=== PATIENT | male | born 1985 | race Caucasian/White ===

== ENCOUNTER 2019-11-29 10:52 | Inpatient (IN) | payer OTHER ==
[2019-11-29] MEDS ORDERED: ONDANSETRON 4 MG/2 ML VIAL IVPUSH ONE (11:51)
[2019-11-29] MEDS ORDERED: FAMOTIDINE 20 MG/50 ML IVPB 20 MG/50 ML MG IVPB ONE (11:51)
[2019-11-29] MEDS ORDERED: SODIUM CHLORIDE 1,000 ML IV STA (11:51)
[2019-11-29] MEDS ORDERED: ACETAMINOPHEN 1000 MG/100 ML VIAL (NON FORMULARY) IVPB ONE (11:51)
--- NOTE | 2019-11-29 12:07 | PDOC ---
History of Present Illness - General Chief Complaint: Diarrhea Stated Complaint: DIZZYNESS Time Seen by Provider: 11/29/19 11:25 History Source: Patient Exam Limitations: No Limitations Past History - Travel History Traveled outside of the country in the last 30 days: No Close contact w/someone who was outside of country & ill: No - Medical History Allergies/Adverse Reactions: Allergies Allergy/AdvReac Type Severity Reaction Status Date / Time No Known Allergies Allergy Verified 11/29/19 10:55 COPD: No Other medical history: DENIES - Immunization History Immunization Up to Date: No - Psycho-Social/Smoking History Smoking History: Never smoked - Substance Abuse Hx (Audit-C & DAST Scrn) How often the patient has a drink containing alcohol: Never Score: In Men: 4 or > Positive; In Women: 3 or > Positive: 0 Screen Result (Pos requires Nsg. Audit-10AR): Negative In the last yr the pt used illegal drug/Rx for NonMed reason: No Score: Yes response is considered Positive: 0 Screen Result (Positive result requires Nsg. DAST-10): Negative Review of Systems - Review of Systems Able to Perform ROS?: Yes Comments:: 11/29/19 12:07 CONSTITUTIONAL: Absent: fever, chills, diaphoresis, generalized weakness, malaise, loss of appetite HEENT: Absent: rhinorrhea, nasal congestion, throat pain, throat swelling, difficulty swallowing, mouth swelling, ear pain, eye pain, visual Changes CARDIOVASCULAR: Absent: chest pain, loss of consciousness, palpitations, irregular heart rate, peripheral edema RESPIRATORY: Absent: cough, shortness of breath, dyspnea with exertion, orthopnea, wheezing, stridor, hemoptysis GASTROINTESTINAL: Present: abdominal pain, nausea, diarrhea Absent: abdominal distension, diarrhea, constipation, melena, hematochezia GENITOURINARY: Absent: dysuria, frequency, urgency, hesitancy, hematuria, flank pain, genital pain MUSCULOSKELETAL: Absent: myalgia, arthralgia, joint swelling SKIN: Absent: rash, itching, pallor HEMATOLOGIC/IMMUNOLOGIC: Absent: easy bleeding, easy bruising, lymphadenopathy, frequent infections ENDOCRINE: Absent: unexplained weight gain, unexplained weight loss, heat intolerance, cold intolerance NEUROLOGIC: Absent: headache, focal weakness or paresthesias, dizziness, unsteady gait, seizure, mental status changes, bladder or bowel incontinence PSYCHIATRIC: Absent: anxiety, depression, suicidal or homicidal ideation, hallucinations. Is the patient limited Fijian proficient: No *Physical Exam - Vital Signs Last Vital Signs Temp Pulse Resp BP Pulse Ox 97.8 F 91 H 20 126/77 100 11/29/19 10:55 11/29/19 10:55 11/29/19 10:55 11/29/19 10:55 11/29/19 10:55 - Physical Exam 11/29/19 12:24 GENERAL: Well developed, well nourished. Awake and alert. No acute distress. HEENT: Normocephalic, atraumatic. PERRLA, EOMI. No conjunctival pallor. Sclera are non- icteric. Moist mucous membranes. Oropharynx is clear. NECK: Supple. Full ROM. No lymphadenopathy. CARDIOVASCULAR: Regular rate and rhythm. No murmurs, rubs, or gallops. Distal pulses are 2+ and symmetric. PULMONARY: No evidence of respiratory distress. Lungs clear to auscultation bilaterally. No wheezing, rales or rhonchi. ABDOMINAL: TTP of LUQ/ LLQ. Soft. Non-distended. No rebound or guarding. No organomegaly. Normoactive bowel sounds. MUSCULOSKELETAL Normal range of motion at all joints. No bony deformities or tenderness. No CVA tenderness. EXTREMITIES: No cyanosis. No clubbing. No edema. No calf tenderness. SKIN: Warm and dry. Normal capillary refill. No rashes. No jaundice. NEUROLOGICAL: Alert, awake, appropriate. Cranial nerves 2-12 intact. No deficits to light touch and temperature in face, upper extremities and lower extremities. No motor deficits in the in face, upper extremities and lower extremities. Normoreflexic in the upper and lower extremities. Normal speech. Toes are down-going bilaterally. Gait is normal without ataxia. PSYCHIATRIC: Cooperative. Good eye contact. Appropriate mood and affect. ED Treatment Course - LABORATORY CBC & Chemistry Diagram: 11/29/19 12:19 11/29/19 12:19 - RADIOLOGY Radiology Studies Ordered: Category Date Time Status ABDOMEN & PELVIS CT WITH CONTR [CT] Stat CT Scan 11/29/19 11:51 Ordered Medical Decision Making - Medical Decision Making 11/29/19 16:39 Patient is a 34-year-old male past medical history of hemorrhoids, presents to the ER today for dizziness, lightheadedness, nausea and diarrhea for the past week. He states his symptoms started on Sunday and have not improved. He notes he has taken Imodium, omeprazole with little relief of his symptoms. He has been eating finding foods however he is still having diarrhea. He also notes that he has been passing micah blood in the toilet bowl often filling the toilet bowl. Denies fevers, chills, chest pain, difficulty breathing, shortness of breath, constipation, hematemesis. A/P: Diarrhea On exam patient has tenderness palpation of the left upper and left lower quadrants without rebound guarding. Rectal exam performed. Large external hemorrhoid from the 6 o'clock position to the 12 o'clock position noted nonthrombosed, soft in nature. Hemoccult sent. No stool in the vault felt. Basic labs, urine, CTAP ordered. Of note patient's hemoglobin was 7 at this time. Given that patient is symp tomatic i.e. dizzy and lightheaded, will order 1 unit for blood transfusion. Additional labs including ferritin and iron studies sent prior to transfusion CTAP with IV contrast shows no acute pathology, unlikely colitis, may be some diverticula without diverticulosis. Given patient has new onset anemia with reports of micah blood in the toilet bowl will admit for GI consult and serial H&H's Report from lab, unable to run Hemoccult card as there was not enough stool sample on the card. Hospitalist consulted 11/29/19 17:[address] Nuñez; Case discussed. Discharge - Discharge Information Problems reviewed: Yes Clinical Impression/Diagnosis: Anemia Qualifiers: Anemia type: unspecified type Qualified Code(s): D64.9 - Anemia, unspecified GI bleed Qualifiers: GI bleed type/associated pathology: unspecified gastrointestinal hemorrhage type Qualified Code(s): K92.2 - Gastrointestinal hemorrhage, unspecified Hemorrhoids Qualifiers: Hemorrhoid type: unspecified Qualified Code(s): K64.9 - Unspecified hemorrhoids Condition: Stable - Admission Yes - Follow up/Referral - Patient Discharge Instructions - Post Discharge Activity
[2019-11-29 12:28] LABS: BASO % 0.5 % (0-2.0); EOS % 0.6 % (0-4.5); HEMATOCRIT 23.2 % (35.4-49); MEAN CELL VOLUME 62.2 fl (80-96); MONO % 7.4 % (3.8-10.2); NEUT % 65.5 % (42.8-82.8); PLATELET COUNT 395 K/MM3 (134-434); RBC 3.73 M/mm3 (4.00-5.60); RDW 20.1 % (11.9-15.9); WHITE BLOOD COUNT 5.3 K/mm3 (4.0-10.0)
[2019-11-29 12:35] LABS: MCH 18.7 pg (25.7-33.7)
[2019-11-29 13:00] LABS: ALK PHOS 49 U/L (45-117); ANION GAP 7 MMOL/L (8-16); BILIRUBIN,TOTAL 0.5 mg/dL (0.2-1); BLOOD UREA NITROGEN 14.1 mg/dL (7-18); CALCIUM 8.6 mg/dL (8.5-10.1); CHLORIDE 105 mmol/L (98-107); CO2 25 mmol/L (21-32); CREATININE 0.9 mg/dL (0.55-1.3); GLUCOSE,RANDOM 92 mg/dL (74-106); LIPASE 118 U/L (73-393); POTASSIUM 4.4 mmol/L (3.5-5.1); SGOT/AST 21 U/L (15-37); SGPT/ALT 34 U/L (13-61); SODIUM 137 mmol/L (136-145); TOT PROT 7.4 g/dl (6.4-8.2)
[2019-11-29 13:00] LABS: INR 1.13 (0.83-1.09); PROTHROMBIN TIME (PATIENT) 13.4 SEC (9.7-13.0)
[2019-11-29 13:08] LABS: EPI CELLS 35 /uL (0-25.1); HYALINE CASTS 15 /uL (0-3.1); URINE APPEARANCE CLEAR; URINE BACTERIA 2 /uL (0-1359); URINE BILIRUBIN NEGATIVE (NEGATIVE); URINE COLOR DK YELLOW; URINE GLUCOSE (UA) NEGATIVE (NEGATIVE); URINE KETONE TRACE (NEGATIVE); URINE LEUK ESTERASE NEGATIVE (NEGATIVE); URINE NITRITE NEGATIVE (NEGATIVE); URINE PROTEIN 1+ (NEGATIVE); URINE RBC 11 /uL (0-23.9); URINE UROBILINOGEN 0.2 mg/dL (0.2-1.0); URINE WBC 20 /uL (0-25.8)
[2019-11-29 15:18] LABS: IRON SERUM 11 ug/dL (50-175); TOTAL IRON BINDING CAPACITY 473 ug/dL (250-450)
--- NOTE | 2019-11-29 17:02 | HP ---
CHIEF COMPLAINT: Micah blood with diarrhea PCP: Dr. Marlen Salazar HISTORY OF PRESENT ILLNESS: 34yo M with known hemorrhoids who presents today after 6 days of acute diarrhea. Patient reports he went for a COVID PCR test on Sunday and upon waking on Sunday he started having LLQ pain and developed diarrhea. Last meal before symptoms was a home-cooked chicken dish. Unfortunately patient had micah blood in the toilet at this time and had multiple episodes of bloody diarrhea. Patient reports he has had episodes of bloody diarrhea years before, but he was never symptomatic from them. Patient notes that today he became dizzy and lightheaded and sought medical evaluation. Pt endorses minimal abdominal tenderness mostly in LLQ without any radiation and characterized as a dull ache. In the ED patient was noted to have Hgb of 7.0 with severe iron deficiency. Patient has never received transfusion before. He has never seen a billing clerk and denies any family history of cancers. Recent Travel: None PAST MEDICAL HISTORY: as above PAST SURGICAL HISTORY: none Social History: Smoking: Denies Alcohol: Denies Drugs: Denies FamHx: No family history of cancers, bleeding or clotting disorders Allergies No Known Allergies Allergy (Verified 11/29/19 10:55) HOME MEDICATIONS: REVIEW OF SYSTEMS As per HPI PHYSICAL EXAMINATION Vital Signs - 24 hr 11/29/19 10:55 Temperature 97.8 F Pulse Rate 91 H Respiratory 20 Rate Blood Pressure 126/77 O2 Sat by Pulse 100 Oximetry (%) GENERAL: Awake, alert, and fully oriented, in no acute distress. HEENT: NC/At, EOMI, [place], no conjunctival pallor, sclera anicteric, MMM LUNGS: CTA bilaterally. No wheezes, and no crackles. No accessory muscle use. HEART: RRR, normal S1 and S2 without murmur ABDOMEN: Soft, normoactive bowel sounds, nondistendend, minimal lower quadrant tenderness, no guarding, no rebound, no masses. No hepatomegaly. Patient deferred rectal exam considering previous exam EXTREMITIES: 2+ pulses, warm, well-perfused. No calf tenderness. No peripheral edema. SKIN: Warm, dry, normal turgor, no rashes or lesions noted, no pallor Laboratory Results - last 24 hr 11/29/19 11/29/19 11/29/19 12:19 12:19 12:37 WBC 5.3 RBC 3.73 L Hgb 7.0 L Hct 23.2 L MCV 62.2 L MCH 18.7 L MCHC 30.0 L RDW 20.1 H Plt Count 395 MPV 7.0 L Absolute Neuts (auto) 3.4 Neutrophils % 65.5 Lymphocytes % 26.0 Monocytes % 7.4 Eosinophils % 0.6 Basophils % 0.5 Nucleated RBC % 0 PT with INR 13.40 H INR 1.13 H Sodium 137 Potassium 4.4 Chloride 105 Carbon Dioxide 25 Anion Gap 7 L BUN 14.1 Creatinine 0.9 Est GFR (CKD-EPI)AfAm 126.90 Est GFR (CKD-EPI)NonAf 109.49 Random Glucose 92 Calcium 8.6 Iron 11 L TIBC 473 H Iron Saturation 2 L Unsaturated IBC 462 H Ferritin 3.4 L Total Bilirubin 0.5 AST 21 ALT 34 Alkaline Phosphatase 49 Creatine Kinase 79 Troponin I < 0.02 Total Protein 7.4 Albumin 4.0 Lipase 118 Urine Color Urine Appearance Urine pH Ur Specific [employer] Urine Protein Urine Glucose (UA) Urine Ketones Urine Blood Urine Nitrite Urine Bilirubin Urine Urobilinogen Ur Leukocyte Esterase Urine WBC (Auto) Urine RBC (Auto) Urine Casts (Auto) U Epithel Cells (Auto) U Sm Round Cell (Auto) Urine Bacteria (Auto) Blood Type Antibody Screen Crossmatch 11/29/19 11/29/19 12:37 13:21 WBC RBC Hgb Hct MCV MCH MCHC RDW Plt Count MPV Absolute Neuts (auto) Neutrophils % Lymphocytes % Monocytes % Eosinophils % Basophils % Nucleated RBC % PT with INR INR Sodium Potassium Chloride Carbon Dioxide Anion Gap BUN Creatinine Est GFR (CKD-EPI)AfAm Est GFR (CKD-EPI)NonAf Random Glucose Calcium Iron TIBC Iron Saturation Unsaturated IBC Ferritin Total Bilirubin AST ALT Alkaline Phosphatase Creatine Kinase Troponin I Total Protein Albumin Lipase Urine Color Dk yellow Urine Appearance Clear Urine pH 6.0 Ur Specific [employer] 1.028 Urine Protein 1+ H Urine Glucose (UA) Negative Urine Ketones Trace H Urine Blood Negative Urine Nitrite Negative Urine Bilirubin Negative Urine Urobilinogen 0.2 Ur Leukocyte Esterase Negative Urine WBC (Auto) 20 Urine RBC (Auto) 11 Urine Casts (Auto) 15 U Epithel Cells (Auto) 35 U Sm Round Cell (Auto) None Urine Bacteria (Auto) 2 Blood Type A POSITIVE Antibody Screen Negative Crossmatch See Detail ASSESSMENT/PLAN: Acute blood loss anemia Iron Deficient Anemia Acute Gastroenteritis --Patient with notable lower GIB likely hemorrhoidal, however will consult GI for further thoughts considering significant anemia --Repeat hemoccult testing (previous not enough stool) --Transfuse 1U PRBC; will test CBC 1hr after transfusion --Threshold >7.0 --Iron studies performed prior to transfusion: severely iron deficient and may need iron supplementation upon d/c --Basic stool studies ordered considering diarrheal syndrome --Monitor hemodynamics Dispo: Considering stability of patient and likely hemorrhoidal as cause of bleed patient can be placed in observation to medical-surgical floor and u pgraded as needed Saul Nuñez DO - IM Family Medical History Family History: As Documented Visit type - Emergency Visit Emergency Visit: Yes Care time: The patient presented to the Emergency Department on the above date and was hospitalized for further evaluation of their emergent condition. - New Patient This patient is new to me today: Yes Date on this admission: 11/29/19 - Critical Care Critical Care patient: No
[2019-11-29] MEDS ORDERED: ACETAMINOPHEN 1000 MG/100 ML VIAL (NON FORMULARY) IVPB PRN (17:59)
[2019-11-29] MEDS: D5-1/2NS+10 MEQ KCL - 10 MEQ/1,000 ML INFUS.BAG IV SCH ×2 (19:50→23:00)
[2019-11-29 20:13] VITALS: BMI 33.7
--- NOTE | 2019-11-29 21:53 | CON.GI ---
Consult Consult Specialty:: Gastroenterology Referred by:: Dr. Saul Nuñez Reason for Consultation:: Rectal bleeding - History of Present Illness Chief Complaint: Bloody diarrhea History of Present Illness: 34M has had blood diarrhea s for several days. he has had between 5-10 BMs daily, He has been taking Amoxicillin for acne. No recent foreign travel. He is having colicky lower abdominal pain and tenesmus. He has also had low grade fevers. He had similar symptoms about 1 month ago which have resolved. He used to take Accutane for his acne. - History Source History Provided By: Patient Limitations to Obtaining History: No Limitations - Past Surgical History Past Surgical History: Yes: None - Alcohol/Substance Use Hx Alcohol Use: Yes (once a month) History of Substance Use: reports: None - Smoking History Smoking history: Never smoked - Social History Usual Living Arrangement: With Significant Other ADL: Independent Occupation: night club promoter Place of : Other ([facility]) Home Medications - Allergies Allergies/Adverse Reactions: Allergies Allergy/AdvReac Type Severity Reaction Status Date / Time No Known Allergies Allergy Verified 11/29/19 10:55 - Home Medications Home Medications: Ambulatory Orders NK [No Known Home Medication] 11/29/19 Physical Exam-GI Vital Signs: Vital Signs Temperature 98.4 F 11/29/19 19:15 Pulse Rate 84 11/29/19 19:15 Respiratory Rate 18 11/29/19 19:15 Blood Pressure 110/60 11/29/19 19:15 O2 Sat by Pulse Oximetry (%) 100 11/29/19 19:15 CBC,CMP WBC 5.3 K/mm3 (4.0-10.0) 11/29/19 12:19 RBC 3.73 M/mm3 (4.00-5.60) L 11/29/19 12:19 Hgb 7.0 GM/dL (11.7-16.9) L 11/29/19 12:19 Hct 23.2 % (35.4-49) L 11/29/19 12:19 MCV 62.2 fl (80-96) L 11/29/19 12:19 MCH 18.7 pg (25.7-33.7) L 11/29/19 12: MCHC 30.0 g/dl (32.0-35.9) L 11/29/19 12:19 RDW 20.1 % (11.9-15.9) H 11/29/19 12:19 Plt Count 395 K/MM3 (134-434) 11/29/19 12:19 MPV 7.0 fl (7.5-11.1) L 11/29/19 12:19 Absolute Neuts (auto) 3.4 K/mm3 (1.5-8.0) 11/29/19 12:19 Neutrophils % 65.5 % (42.8-82.8) 11/29/19 12:19 Lymphocytes % 26.0 % (8-40) 11/29/19 12:19 Monocytes % 7.4 % (3.8-10.2) 11/29/19 12: Eosinophils % 0.6 % (0-4.5) 11/29/19 12: Basophils % 0.5 % (0-2.0) 11/29/19 12: Nucleated RBC % 0 % (0-0) 11/29/19 12:19 Sodium 137 mmol/L (136-145) 11/29/19 12:19 Potassium 4.4 mmol/L (3.5-5.1) 11/29/19 12:19 Chloride 105 mmol/L (98-107) 11/29/19 12:19 Carbon Dioxide 25 mmol/L (21-32) 11/29/19 12:19 Anion Gap 7 MMOL/L (8-16) L 11/29/19 12:19 BUN 14.1 mg/dL (7-18) 11/29/19 12:19 Creatinine 0.9 mg/dL (0.55-1.3) 11/29/19 12:19 Est GFR (CKD-EPI)AfAm 126.90 11/29/19 12:19 Est GFR (CKD-EPI)NonAf 109.49 11/29/19 12:19 Random Glucose 92 mg/dL (74-106) 11/29/19 12:19 Calcium 8.6 mg/dL (8.5-10.1) 11/29/19 12:19 Iron 11 ug/dL (50-175) L 11/29/19 12:19 TIBC 473 ug/dL (250-450) H 11/29/19 12:19 Iron Saturation 2 % (17.5-39) L 11/29/19 12:19 Unsaturated IBC 462 ug/dL (200-275) H 11/29/19 12:19 Ferritin 3.4 ng/ml (8-388) L 11/29/19 12:19 Total Bilirubin 0.5 mg/dL (0.2-1) 11/29/19 12:19 AST 21 U/L (15-37) 11/29/19 12:19 ALT 34 U/L (13-61) 11/29/19 12:19 Alkaline Phosphatase 49 U/L (45-117) 11/29/19 12:19 Creatine Kinase 79 U/L (26-308) 11/29/19 12:19 Troponin I < 0.02 ng/ml (0.00-0.05) 11/29/19 12:19 Total Protein 7.4 g/dl (6.4-8.2) 11/29/19 12:19 Albumin 4.0 g/dl (3.4-5.0) 11/29/19 12:19 Lipase 118 U/L (73-393) 11/29/19 12:19 Current Medications Generic Name Dose Route Start Last Admin Trade Name Kennethq PRN Reason Stop Dose Admin Acetaminophen 1,000 mg 11/29/19 17:59 Ofirmev Injection - IVPB 11/30/19 17:59 Q6H PRN PAIN LEVEL 4 - 6 Potassium Chloride/Dextrose/Sod Cl 10 meq in 1,000 mls @ 75 mls/hr 11/29/19 17 :45 11/29/19 19:50 D5-1/2ns+10 Meq Kcl - IV 11/30/19 07:04 Not Given ASDIR ARCHIE Constitutional: Yes: Anxious Eyes: Yes: Conjunctiva Clear HENT: Yes: Normocephalic Neck: Yes: Trachea Midline Cardiovascular: Yes: Regular Rate and Rhythm Respiratory: Yes: CTA Bilaterally Gastrointestinal Inspection: Yes: WNL ...Auscultate: Yes: Hyperactive Bowel Sounds ...Palpate: Yes: Soft, Other (nontender) ...Rectal Exam: Yes: Guaiac Positive (fresh blood, no masses) Edema: No Peripheral Pulses WNL: Yes Labs: CBC, BMP 11/29/19 12:19 11/29/19 12:19 INR, PTT INR 1.13 (0.83-1.09) H 11/29/19 12:37 Problem List - Problems (1) GI bleed Code(s): K92.2 - GASTROINTESTINAL HEMORRHAGE, UNSPECIFIED Qualifiers: GI bleed type/associated pathology: unspecified gastrointestinal hemorrhage type Qualified Code(s): K92.2 - Gastrointestinal hemorrhage, unspecified (2) Bloody diarrhea Code(s): R19.7 - DIARRHEA, UNSPECIFIED (3) Acne vulgaris Code(s): L70.0 - ACNE VULGARIS Assessment/Plan Impression: - Given his antibiotic exposure I suspect C diff colitis but this could be an other enteric pathogen such as shigella. His Accutane exposure raises the possibility of ulcerative colitis. Given the recurring nature of his diarrhea and the anemia that it has caused I have advised a colonoscopy to exclude ulcerative coltis and pseudomembranous colitis. I have discussed colonoscopy in detail and informed him of the potential for such complications as perforation and hemorrhage. He has signed an informed consent. I have scheduled him for 11/30. Plan: -- Stool for C diff and enteric pathogens pending -- Transfusion in progress -- Golytely prep tomorrow for Sunday colonoscopyl -- Clear liquids -- Serial CBCs
[2019-11-30 00:49] LABS: HEMATOCRIT 22.7 % (35.4-49); MCHC 30.8 g/dl (32.0-35.9); MEAN CELL VOLUME 64.2 fl (80-96); PLATELET COUNT 345 K/MM3 (134-434); RBC 3.54 M/mm3 (4.00-5.60); RDW 21.8 % (11.9-15.9); WHITE BLOOD COUNT 5.7 K/mm3 (4.0-10.0)
[2019-11-30 00:53] LABS: MCH 19.8 pg (25.7-33.7)
[2019-11-30 08:15] LABS: HEMATOCRIT 25.1 % (35.4-49); MCH 20.7 pg (25.7-33.7); MCHC 31.8 g/dl (32.0-35.9); MEAN CELL VOLUME 65.2 fl (80-96); MEAN PLT VOLUME 7.4 fl (7.5-11.1); PLATELET COUNT 396 K/MM3 (134-434); RBC 3.86 M/mm3 (4.00-5.60); RDW 23.8 % (11.9-15.9); WHITE BLOOD COUNT 5.9 K/mm3 (4.0-10.0)
[2019-11-30 08:26] LABS: BLOOD UREA NITROGEN 10.8 mg/dL (7-18); CALCIUM 8.5 mg/dL (8.5-10.1); CREATININE 0.8 mg/dL (0.55-1.3); POTASSIUM 4.2 mmol/L (3.5-5.1)
--- NOTE | 2019-11-30 11:43 | PN.GI ---
GI Progress Note Subjective: GI NOte: Had more bloody diarrhea overnight. Has colicky cramps. Discussed my suspicion that he has ulcerative colitis, particularly given his profound iron deficiency anemia. He may need more transfusions. Will give venofer - Objective Vital Signs: Vital Signs Temperature 98.3 F 11/30/19 10:04 Pulse Rate 83 11/30/19 10:04 Respiratory Rate 18 11/30/19 10:04 Blood Pressure 126/69 11/30/19 10:04 O2 Sat by Pulse Oximetry (%) 99 11/30/19 10:04 Laboratory Tests 11/29/19 11/29/19 11/30/19 12:19 12:19 07:30 Hgb 7.0 L 8.0 L Retic Count Iron 11 L Iron Saturation 2 L Ferritin 3.4 L C-Reactive Protein 11/30/19 11/30/19 07:30 07:30 Hgb Retic Count 2.04 H Iron Iron Saturation Ferritin C-Reactive Protein 1.3 H Laboratory Tests 11/29/19 11/30/19 12:19 07:30 C-Reactive Protein 1.3 H COVID-19 (SYLVIE) Not detected Constitutional: Anxious Eyes: Yes: Conjunctiva Clear ...Auscultate: Yes: Normoactive Bowel Sounds ...Palpate: Yes: Soft, Other (nontender) Labs: CBC, BMP 11/30/19 07:30 11/30/19 07:30 INR, PTT INR 1.13 (0.83-1.09) H 11/29/19 12:37 Assessment/Plan Impression: - I suspect C diff colitis but need to exclude C diff colitis and other enteric pathogens such as shigella. His Accutane exposure raises the possibility of ulcerative colitis. Plan: -- Stool for C diff and enteric pathogens pending -- Venofer -- Golytely prep for colonoscopy tomorrow -- Clear liquids -- Serial CBCs Problem List - Problems (1) GI bleed Code(s): K92.2 - GASTROINTESTINAL HEMORRHAGE, UNSPECIFIED Qualifiers: GI bleed type/associated pathology: unspecified gastrointestinal hemorrhage type Qualified Code(s): K92.2 - Gastrointestinal hemorrhage, unspecified (2) Bloody diarrhea Code(s): R19.7 - DIARRHEA, UNSPECIFIED (3) Acne vulgaris Code(s): L70.0 - ACNE VULGARIS
[2019-11-30] MEDS ORDERED: PEG 3350/NA SULF BICARB CL/KCL 4000 ML SOLN.RECON PO ONE (12:00)
[2019-11-30] MEDS ORDERED: IRON SUCROSE INJECTION 300 MG in SODIUM CHLORIDE 235 ML IVPB ONE (12:00)
--- NOTE | 2019-11-30 12:22 | PN ---
Physical Exam: SUBJECTIVE: Patient seen and examined at bedside. No acute events reported overnight. Patient reports blood bowel movements overnight. OBJECTIVE: Vital Signs Period Temp Pulse Resp BP Sys/Lobato Pulse Ox Last 24 Hr 98.0 F-98.6 F 75-89 18-20 110-126/55-73 96-100 GENERAL: AAOx3, in no acute distress HEENT: NCAT, PERRLA, EOMI, sclera anicteric, conjunctiva clear, oropharynx clear w/o exudates. MMM. NECK: Normal ROM, supple, no lymphadenopathy, JVD, or masses LUNGS: CTABL no wheezes/ rhonchi/ rales. No distress, speaks in full sentences. No increased work of breathing. HEART: RRR, normal S1 S2, no M/R/G, peripheral pulses 2+ and equal b/l ABDOMEN: Soft, NTND, + BS. No guarding or rebound. No hepatomegaly or splenomegaly. MSK: ROM WNL EXTREMITIES: Normal inspection. No peripheral edema. No clubbing or cyanosis. NEUROLOGICAL: CN II-XII intact. Normal speech, normal gait, no focal sensorimoto r deficits. SKIN: Warm, Dry, normal turgor, no rashes or lesions noted Laboratory Results - last 24 hr CBC, BMP 11/30/19 07:30 11/30/19 07:30 11/29/19 11/29/19 11/29/19 12:19 12:19 12:19 WBC 5.3 RBC 3.73 L Hgb 7.0 L Hct 23.2 L MCV 62.2 L MCH 18.7 L MCHC 30.0 L RDW 20.1 H Plt Count 395 MPV 7.0 L Absolute Neuts (auto) 3.4 Neutrophils % 65.5 Lymphocytes % 26.0 Monocytes % 7.4 Eosinophils % 0.6 Basophils % 0.5 Nucleated RBC % 0 Retic Count PT with INR INR Sodium 137 Potassium 4.4 Chloride 105 Carbon Dioxide 25 Anion Gap 7 L BUN 14.1 Creatinine 0.9 Est GFR (CKD-EPI)AfAm 126.90 Est GFR (CKD-EPI)NonAf 109.49 Random Glucose 92 Calcium 8.6 Iron 11 L TIBC 473 H Iron Saturation 2 L Unsaturated IBC 462 H Ferritin 3.4 L Total Bilirubin 0.5 AST 21 ALT 34 Alkaline Phosphatase 49 Creatine Kinase 79 Troponin I < 0.02 C-Reactive Protein Total Protein 7.4 Albumin 4.0 Lipase 118 Urine Color Urine Appearance Urine pH Ur Specific [place] Urine Protein Urine Glucose (UA) Urine Ketones Urine Blood Urine Nitrite Urine Bilirubin Urine Urobilinogen Ur Leukocyte Esterase Urine WBC (Auto) Urine RBC (Auto) Urine Casts (Auto) U Epithel Cells (Auto) U Sm Round Cell (Auto) Urine Bacteria (Auto) COVID-19 (SYLVIE) Not detected Anti-A Titer Blood Type Antibody Screen Crossmatch 11/29/19 11/29/19 11/29/19 12:37 12:37 13:21 WBC RBC Hgb Hct MCV MCH MCHC RDW Plt Count MPV Absolute Neuts (auto) Neutrophils % Lymphocytes % Monocytes % Eosinophils % Basophils % Nucleated RBC % Retic Count PT with INR 13.40 H INR 1.13 H Sodium Potassium Chloride Carbon Dioxide Anion Gap BUN Creatinine Est GFR (CKD-EPI)AfAm Est GFR (CKD-EPI)NonAf Random Glucose Calcium Iron TIBC Iron Saturation Unsaturated IBC Ferritin Total Bilirubin AST ALT Alkaline Phosphatase Creatine Kinase Troponin I C-Reactive Protein Total Protein Albumin Lipase Urine Color Dk yellow Urine Appearance Clear Urine pH 6.0 Ur Specific [place] 1.028 Urine Protein 1+ H Urine Glucose (UA) Negative Urine Ketones Trace H Urine Blood Negative Urine Nitrite Negative Urine Bilirubin Negative Urine Urobilinogen 0.2 Ur Leukocyte Esterase Negative Urine WBC (Auto) 20 Urine RBC (Auto) 11 Urine Casts (Auto) 15 U Epithel Cells (Auto) 35 U Sm Round Cell (Auto) None Urine Bacteria (Auto) 2 COVID-19 (SYLVIE) Anti-A Titer Blood Type A POSITIVE Antibody Screen Negative Crossmatch See Detail 11/29/19 11/29/19 11/30/19 16:59 16:59 00:29 WBC 5.7 RBC 3.54 L Hgb 7.0 L Hct 22.7 L MCV 64.2 L MCH 19.8 L MCHC 30.8 L RDW 21.8 H Plt Count 345 MPV 7.0 L Absolute Neuts (auto) Neutrophils % Lymphocytes % Monocytes % Eosinophils % Basophils % Nucleated RBC % Retic Count PT with INR INR Sodium Potassium Chloride Carbon Dioxide Anion Gap BUN Creatinine Est GFR (CKD-EPI)AfAm Est GFR (CKD-EPI)NonAf Random Glucose Calcium Iron TIBC Iron Saturation Unsaturated IBC Ferritin Total Bilirubin AST ALT Alkaline Phosphatase Creatine Kinase Troponin I C-Reactive Protein Total Protein Albumin Lipase Urine Color Urine Appearance Urine pH Ur Specific [place] Urine Protein Urine Glucose (UA) Urine Ketones Urine Blood Urine Nitrite Urine Bilirubin Urine Urobilinogen Ur Leukocyte Esterase Urine WBC (Auto) Urine RBC (Auto) Urine Casts (Auto) U Epithel Cells (Auto) U Sm Round Cell (Auto) Urine Bacteria (Auto) COVID-19 (SYLVIE) Anti-A Titer Cancelled Blood Type A POSITIVE Cancelled Antibody Screen Cancelled Crossmatch 11/30/19 11/30/19 11/30/19 07:30 07:30 07:30 WBC 5.9 RBC 3.86 L Hgb 8.0 L Hct 25.1 L MCV 65.2 L MCH 20.7 L MCHC 31.8 L RDW 23.8 H Plt Count 396 MPV 7.4 L Absolute Neuts (auto) Neutrophils % Lymphocytes % Monocytes % Eosinophils % Basophils % Nucleated RBC % Retic Count PT with INR INR Sodium 137 Potassium 4.2 Chloride 104 Carbon Dioxide 27 Anion Gap 7 L BUN 10.8 Creatinine 0.8 Est GFR (CKD-EPI)AfAm 133.20 Est GFR (CKD-EPI)NonAf 114.93 Random Glucose 88 Calcium 8.5 Iron 22 L TIBC 445 Iron Saturation 4 L Unsaturated IBC 423 H Ferritin 4.8 L Total Bilirubin AST ALT Alkaline Phosphatase Creatine Kinase Troponin I C-Reactive Protein 1.3 H Total Protein Albumin Lipase Urine Color Urine Appearance Urine pH Ur Specific [place] Urine Protein Urine Glucose (UA) Urine Ketones Urine Blood Urine Nitrite Urine Bilirubin Urine Urobilinogen Ur Leukocyte Esterase Urine WBC (Auto) Urine RBC (Auto) Urine Casts (Auto) U Epithel Cells (Auto) U Sm Round Cell (Auto) Urine Bacteria (Auto) COVID-19 (SYLVIE) Anti-A Titer Blood Type Antibody Screen Crossmatch 11/30/19 07:30 WBC RBC Hgb Hct MCV MCH MCHC RDW Plt Count MPV Absolute Neuts (auto) Neutrophils % Lymphocytes % Monocytes % Eosinophils % Basophils % Nucleated RBC % Retic Count 2.04 H PT with INR INR Sodium Potassium Chloride Carbon Dioxide Anion Gap BUN Creatinine Est GFR (CKD-EPI)AfAm Est GFR (CKD-EPI)NonAf Random Glucose Calcium Iron TIBC Iron Saturation Unsaturated IBC Ferritin Total Bilirubin AST ALT Alkaline Phosphatase Creatine Kinase Troponin I C-Reactive Protein Total Protein Albumin Lipase Urine Color Urine Appearance Urine pH Ur Specific [place] Urine Protein Urine Glucose (UA) Urine Ketones Urine Blood Urine Nitrite Urine Bilirubin Urine Urobilinogen Ur Leukocyte Esterase Urine WBC (Auto) Urine RBC (Auto) Urine Casts (Auto) U Epithel Cells (Auto) U Sm Round Cell (Auto) Urine Bacteria (Auto) COVID-19 (SYLVIE) Anti-A Titer Blood Type Antibody Screen Crossmatch Active Medications Generic Name Dose Route Start Last Admin Trade Name Freq PRN Reason Stop Dose Admin Acetaminophen 1,000 mg 11/29/19 17:59 Ofirmev Injection - IVPB 11/30/19 17:59 Q6H PRN PAIN LEVEL 4 - 6 Iron Sucrose 300 mg/ Sodium 250 mls @ 125 mls/hr 11/30/19 12:00 Chloride IVPB 11/30/19 13:59 ONCE ONE Pantoprazole Sodium 40 mg 12/01/19 10:00 Protonix - PO DAILY ARCHIE ASSESSMENT/PLAN: 34 y/o Male with PMx of hemorrhoids who presents today after 6 days of acute blo jovana diarrhea. Admitted for suspected C. diff colitis vs. UC. #Suspected C.Diff colitis vs. Ulcerative Colitis -C. diff suspected given recent abx use and pt GF presenting with similar s/s -Ulcerative colitis suspected given patient's history of bloody diarrhea in the past and chronic BRIE -GI consult: Dr. Jim to perform colonoscopy tomorrow; bowel prep ordered -c/w IV hydration -NPO -isolation precautions -pending C. diff toxin final results #Iron Deficiency Anemia -s/p 1U transfer -today's Hg-8.0 -continue to monitor Hg -started on Venofer today as per GI reccs #FEN -NS @ 100 mls/hr -monitor lytes and Hg; replete PRN -clear liquid diet today; NPO tonight with bowel prep for Colonoscopy tomorrow dispo: continue to monitor in m/s Visit type - Emergency Visit Emergency Visit: No - New Patient This patient is new to me today: Yes Date on this admission: 11/30/19 - Critical Care Critical Care patient: No - Discharge Referral Referred to [facility] Med P.C.: No ATTENDING PHYSICIAN STATEMENT I saw and evaluated the patient. I reviewed the resident's note and discussed the case with the resident. I agree with the resident's findings and plan as documented. SUBJECTIVE: OBJECTIVE: ASSESSMENT AND PLAN:
--- NOTE | 2019-11-30 12:37 | PN ---
Teaching Attending Note Name of Resident: Chirag Sylvester ATTENDING PHYSICIAN STATEMENT I saw and evaluated the patient. I reviewed the resident's note and discussed the case with the resident. I agree with the resident's findings and plan as documented. SUBJECTIVE: pt seen and examined OBJECTIVE: Last Vital Signs Temp Pulse Resp BP Pulse Ox 98.3 F 83 18 126/69 99 11/30/19 10:04 11/30/19 10:04 11/30/19 10:04 11/30/19 10:11/30/19 10:04 GENERAL: Awake, alert, and fully oriented, in no acute distress. HEAD: Normal with no signs of trauma. EYES: Pupils equal, round and reactive to light, sclera anicteric, conjunctiva clear. LUNGS: Breath sounds equal, clear to auscultation bilaterally. No wheezes, and no crackles. No accessory muscle use. HEART: Regular rate and rhythm, normal S1 and S2 ABDOMEN: Soft, nontender, not distended MUSCULOSKELETAL: Normal range of motion at all joints. No bony deformities or tenderness. No CVA tenderness. UPPER EXTREMITIES: 2+ pulses, warm, well-perfused. No cyanosis. No clubbing. No peripheral edema. LOWER EXTREMITIES: 2+ pulses, warm, well-perfused. No calf tenderness. No peripheral edema. NEUROLOGICAL: Cranial nerves II-XII intact. Normal speech. CBCD WBC 5.9 K/mm3 (4.0-10.0) 11/30/19 07:30 RBC 3.86 M/mm3 (4.00-5.60) L 11/30/19 07:30 Hgb 8.0 GM/dL (11.7-16.9) L 11/30/19 07:30 Hct 25.1 % (35.4-49) L 11/30/19 07:30 MCV 65.2 fl (80-96) L 11/30/19 07:30 MCHC 31.8 g/dl (32.0-35.9) L 11/30/19 07:30 RDW 23.8 % (11.9-15.9) H 11/30/19 07:30 Plt Count 396 K/MM3 (134-434) 11/30/19 07:30 MPV 7.4 fl (7.5-11.1) L 11/30/19 07:30 CMP Sodium 137 mmol/L (136-145) 11/30/19 07:30 Potassium 4.2 mmol/L (3.5-5.1) 11/30/19 07:30 Chloride 104 mmol/L (98-107) 11/30/19 07:30 Carbon Dioxide 27 mmol/L (21-32) 11/30/19 07:30 Anion Gap 7 MMOL/L (8-16) L 11/30/19 07:30 BUN 10.8 mg/dL (7-18) 11/30/19 07:30 Creatinine 0.8 mg/dL (0.55-1.3) 11/30/19 07:30 Calcium 8.5 mg/dL (8.5-10.1) 11/30/19 07:30 Total Bilirubin 0.5 mg/dL (0.2-1) 11/29/19 12:19 AST 21 U/L (15-37) 11/29/19 12:19 ALT 34 U/L (13-61) 11/29/19 12:19 Alkaline Phosphatase 49 U/L (45-117) 11/29/19 12:19 Total Protein 7.4 g/dl (6.4-8.2) 11/29/19 12:19 Albumin 4.0 g/dl (3.4-5.0) 11/29/19 12:19 Active Medications Acetaminophen (Ofirmev Injection -) 1,000 mg IVPB Q6H PRN PRN Reason: PAIN LEVEL 4 - 6 Stop: 11/30/19 17:59 Iron Sucrose 300 mg/ Sodium (Chloride) 250 mls @ 125 mls/hr IVPB ONCE ONE Stop: 11/30/19 13:59 Pantoprazole Sodium (Protonix -) 40 mg PO DAILY [facility] ASSESSMENT AND PLAN: 34 y o Man with Mhx of hemorrhoids who presents today after 6 days of acute diarrhea # suspected C.Diff colitis -given the hx of recent Abx use, reporting his GF having similar symptoms -other etiologies to consider Ulcerative colitis -GI consult appreciated -going for colonoscopy in AM -IV hydration -NPO -isolation precautions -pending c-dif toxin DVT prophylaxis
[2019-11-30] MEDS: SODIUM CHLORIDE 1,000 ML IV SCH (16:24)
--- NOTE | 2019-11-30 20:05 | EKG ---
Test Reason : Blood Pressure : / mmHG Vent. Rate : 077 BPM Atrial Rate : 077 BPM P-R Int : 126 ms QRS Dur : 094 ms QT Int : 358 ms P-R-T Axes : 018 028 004 degrees QTc Int : 405 ms NORMAL SINUS RHYTHM NORMAL ECG NO PREVIOUS ECGS AVAILABLE Confirmed by OZZY HOOVER MD ([id number]) on 11/30/2019 8:04:57 PM Referred By: Confirmed By:OZZY HOOVER MD
[2019-11-30 20:07] LABS: BASO % 0.2 % (0-2.0); EOS % 1.4 % (0-4.5); HEMATOCRIT 22.6 % (35.4-49); HEMOGLOBIN 7.2 GM/dL (11.7-16.9); LYMPH % 25.6 % (8-40); MCH 20.9 pg (25.7-33.7); MCHC 31.8 g/dl (32.0-35.9); MEAN CELL VOLUME 65.9 fl (80-96); MEAN PLT VOLUME 7.3 fl (7.5-11.1); NEUT % 61.8 % (42.8-82.8); PLATELET COUNT 346 K/MM3 (134-434); RBC 3.44 M/mm3 (4.00-5.60); RDW 23.6 % (11.9-15.9); WHITE BLOOD COUNT 6.4 K/mm3 (4.0-10.0)
[2019-12-01] MEDS: SODIUM CHLORIDE 1,000 ML IV SCH ×2 (02:47→18:11)
[2019-12-01 03:15] LABS: BASO % 0.2 % (0-2.0); EOS % 1.3 % (0-4.5); LYMPH % 19.7 % (8-40); MCH 20.4 pg (25.7-33.7); MEAN CELL VOLUME 65.9 fl (80-96); MEAN PLT VOLUME 7.1 fl (7.5-11.1); MONO % 11.3 % (3.8-10.2); NEUT % 67.5 % (42.8-82.8); PLATELET COUNT 346 K/MM3 (134-434); RBC 3.19 M/mm3 (4.00-5.60); RDW 23.8 % (11.9-15.9); WHITE BLOOD COUNT 6.2 K/mm3 (4.0-10.0)
[2019-12-01 03:20] LABS: HEMOGLOBIN 6.5 GM/dL (11.7-16.9)
[2019-12-01 03:39] LABS: ALBUMIN 3.3 g/dl (3.4-5.0); BILIRUBIN,TOTAL 0.6 mg/dL (0.2-1); BLOOD UREA NITROGEN 8.1 mg/dL (7-18); CALCIUM 7.7 mg/dL (8.5-10.1); CREATININE 0.9 mg/dL (0.55-1.3); POTASSIUM 3.7 mmol/L (3.5-5.1); TOT PROT 6.1 g/dl (6.4-8.2)
[2019-12-01 07:03] LABS: BASO % 0.2 % (0-2.0); EOS % 0.8 % (0-4.5); HEMATOCRIT 21.4 % (35.4-49); LYMPH % 25.8 % (8-40); MCH 20.5 pg (25.7-33.7); MCHC 31.4 g/dl (32.0-35.9); MEAN CELL VOLUME 65.3 fl (80-96); MEAN PLT VOLUME 7.6 fl (7.5-11.1); MONO % 9.1 % (3.8-10.2); NEUT % 64.1 % (42.8-82.8); PLATELET COUNT 395 K/MM3 (134-434); RBC 3.28 M/mm3 (4.00-5.60); RDW 23.7 % (11.9-15.9); WHITE BLOOD COUNT 8.3 K/mm3 (4.0-10.0)
[2019-12-01 07:23] LABS: INR 1.25 (0.83-1.09); PROTHROMBIN TIME (PATIENT) 14.8 SEC (9.7-13.0)
[2019-12-01 07:24] LABS: HEMOGLOBIN 6.7 GM/dL (11.7-16.9)
[2019-12-01 07:27] LABS: BILIRUBIN,DIRECT 0.1 mg/dL (0.0-0.2); BILIRUBIN,TOTAL 0.6 mg/dL (0.2-1); BLOOD UREA NITROGEN 8.5 mg/dL (7-18); CALCIUM 7.7 mg/dL (8.5-10.1); CREATININE 0.8 mg/dL (0.55-1.3); PHOSPHOROUS 3.4 mg/dL (2.5-4.9)
[2019-12-01] MEDS: PANTOPRAZOLE 40 MG TABLET PO SCH (09:30)
--- NOTE | 2019-12-01 10:55 | PN ---
Progress Note (short form) - Note Progress Note: ID CONSULT DICTATED BLOODY DIARRHEA, CT EVIDENCE OF COLITIS ? INFECTIOUS ETIOLOGY ? INFLAMMATORY ? C DIFF SEVERE ANEMIA AWAIT W/U FOR COLONOSCOPY EMPIRIC CEFTRIAXONE/ FLAGYL
[2019-12-01] MEDS ORDERED: DEXTROSE 5%-WATER 100 ML IVPB ONE (11:55)
[2019-12-01 11:56] LABS: BASO % 0.3 % (0-2.0); EOS % 1.2 % (0-4.5); HEMATOCRIT 21.7 % (35.4-49); LYMPH % 23.4 % (8-40); MCH 20.9 pg (25.7-33.7); MCHC 31.5 g/dl (32.0-35.9); MEAN CELL VOLUME 66.4 fl (80-96); MEAN PLT VOLUME 7.4 fl (7.5-11.1); MONO % 11.1 % (3.8-10.2); PLATELET COUNT 362 K/MM3 (134-434); RBC 3.26 M/mm3 (4.00-5.60); RDW 22.8 % (11.9-15.9)
--- NOTE | 2019-12-01 11:56 | PN ---
Physical Exam: SUBJECTIVE: Patient seen and examined at bedside. No acute events overnight. OBJECTIVE: Vital Signs Period Temp Pulse Resp BP Sys/Lobato Pulse Ox Last 24 Hr 98.4 F-99.1 F 85-95 18-22 116-134/61-79 96-99 GENERAL: AAOx3, in no acute distress. laying in bed HEENT: NCAT, PERRLA, EOMI, sclera anicteric, conjunctiva clear, oropharynx clear w/o exudates. MMM. NECK: Normal ROM, supple, no lymphadenopathy, JVD, or masses LUNGS: CTABL no wheezes/ rhonchi/ rales. No distress, speaks in full sentences. No increased work of breathing. HEART: RRR, normal S1 S2, no M/R/G, peripheral pulses 2+ and equal b/l ABDOMEN: Soft, NTND, + BS. No guarding or rebound. No hepatomegaly or splenomegaly. MSK: ROM WNL. Diffuse tenderness in low back. EXTREMITIES: Normal inspection. No peripheral edema. No clubbing or cyanosis. NEUROLOGICAL: CN II-XII intact. Normal speech, normal gait, no focal sensorimotor deficits. SKIN: Warm, Dry, normal turgor, no rashes or lesions noted Laboratory Results - last 24 hr CBC, BMP 12/01/19 11:15 12/01/19 05:40 11/29/19 11/30/19 12/01/19 13:21 19:23 02:40 WBC 6.4 RBC 3.44 L Hgb 7.2 L Hct 22.6 L MCV 65.9 L MCH 20.9 L MCHC 31.8 L RDW 23.6 H Plt Count 346 MPV 7.3 L Absolute Neuts (auto) 3.9 Neutrophils % 61.8 Lymphocytes % 25.6 Monocytes % 11.0 H Eosinophils % 1.4 D Basophils % 0.2 Nucleated RBC % 0 PT with INR INR Sodium Potassium Chloride Carbon Dioxide Anion Gap BUN Creatinine Est GFR (CKD-EPI)AfAm Est GFR (CKD-EPI)NonAf POC Glucometer 100 Random Glucose Calcium Phosphorus Magnesium Total Bilirubin Direct Bilirubin AST ALT Alkaline Phosphatase Total Protein Albumin Blood Type A POSITIVE Antibody Screen Negative Crossmatch See Detail 12/01/19 12/01/19 12/01/19 03:00 03:00 05:40 WBC 6.2 8.3 RBC 3.19 L 3.28 L Hgb 6.5 L* 6.7 L* Hct 21.0 L 21.4 L MCV 65.9 L 65.3 L MCH 20.4 L 20.5 L MCHC 31.0 L 31.4 L RDW 23.8 H 23.7 H Plt Count 346 395 MPV 7.1 L 7.6 Absolute Neuts (auto) 4.2 5.3 Neutrophils % 67.5 64.1 Lymphocytes % 19.7 D 25.8 D Monocytes % 11.3 H 9.1 Eosinophils % 1.3 0.8 Basophils % 0.2 0.2 Nucleated RBC % 0 0 PT with INR INR Sodium 138 Potassium 3.7 Chloride 105 Carbon Dioxide 27 Anion Gap 5 L BUN 8.1 Creatinine 0.9 Est GFR (CKD-EPI)AfAm 126.90 Est GFR (CKD-EPI)NonAf 109.49 POC Glucometer Random Glucose 98 Calcium 7.7 L Phosphorus Magnesium Total Bilirubin 0.6 Direct Bilirubin AST 16 ALT 27 Alkaline Phosphatase 43 L Total Protein 6.1 L Albumin 3.3 L Blood Type Antibody Screen Crossmatch 12/01/19 12/01/19 05:40 05:40 WBC RBC Hgb Hct MCV MCH MCHC RDW Plt Count MPV Absolute Neuts (auto) Neutrophils % Lymphocytes % Monocytes % Eosinophils % Basophils % Nucleated RBC % PT with INR 14.80 H INR 1.25 H Sodium 139 Potassium 4.0 Chloride 107 Carbon Dioxide 26 Anion Gap 7 L BUN 8.5 Creatinine 0.8 Est GFR (CKD-EPI)AfAm 133.20 Est GFR (CKD-EPI)NonAf 114.93 POC Glucometer Random Glucose 98 Calcium 7.7 L Phosphorus 3.4 Magnesium 2.0 Total Bilirubin 0.6 Direct Bilirubin 0.1 AST ALT Alkaline Phosphatase Total Protein Albumin Blood Type Antibody Screen Crossmatch Active Medications Generic Name Dose Route Start Last Admin Trade Name Freq PRN Reason Stop Dose Admin Sodium Chloride 1,000 mls @ 100 mls/hr 11/30/19 13:45 12/01/19 02:47 Normal Saline - IV 100 mls/hr ASDIR ARCHIE Administration Ceftriaxone Sodium 2 gm/ 100 mls @ 200 mls/hr 12/01/19 12:00 Dextrose IVPB DAILY ARCHIE Protocol Metronidazole 500 mg in 100 mls @ 100 mls/hr 12/01/19 11:45 Flagyl 500mg Premixed Ivpb - IVPB Q8H-IV ARCHIE Pantoprazole Sodium 40 mg 12/01/19 10:00 12/01/19 09:30 Protonix - PO 40 mg DAILY ARCHIE Administration ASSESSMENT/PLAN: 34 y/o Male with PMx of hemorrhoids who presents today after 6 days of acute bloody diarrhea. Admitted for suspected C. diff colitis vs. UC. #Colitis with suspicion for Ulcerative Colitis -Ulcerative colitis suspected given patient's history of bloody diarrhea in the past and chronic BRIE -GI consult: colonoscopy tomorrow; NPO at midnight -c/w IV hydration -NPO -isolation precautions -C. diff toxin-negative #Iron Deficiency Anemia -s/p 1U transfer this AM; patient c/o mild chest pain after first transfusion -post transfusion Hg still < 7 -2 more units PRBC ordered w/ IV Lasix in between units for chest pain -continue to monitor Hg -c/w Venofer as per GI reccs #Chest Pain -Patient had mild chest pain this morning at 10:10 AM 40 minutes after transfusion -trops negative -CXR- negative for acute pathology -EKG-NSR -20 IV Lasix ordered in between transfusion units -Cardio consult: cleared for procedure #FEN -NS @ 100 mls/hr -monitor lytes and Hg; replete PRN -clear liquid diet today; NPO tonight for Colonoscopy tomorrow dispo: continue to monitor in m/s Visit type - Emergency Visit Emergency Visit: No - New Patient This patient is new to me today: No - Critical Care Critical Care patient: No - Discharge Referral Referred to [facility] Med P.C.: No ATTENDING PHYSICIAN STATEMENT I saw and evaluated the patient. I reviewed the resident's note and discussed the case with the resident. I agree with the resident's findings and plan as documented. SUBJECTIVE: OBJECTIVE: ASSESSMENT AND PLAN:
--- NOTE | 2019-12-01 11:56 | CONS ---
INFECTIOUS DISEASE CONSULTATION DATE OF CONSULTATION: DATE OF DICTATION: 12/01/2019 HISTORY: The patient is a 34-year-old male who is evaluated for bloody diarrhea. He reports a 1 week history of dizziness, fatigue, nausea and bloody diarrhea. He had apparently been taking amoxicillin for acne. He was supposed to take it for a month. Patient reports taking it for a little over a week, however, developed gastrointestinal side effects. He reports having at least 5 to 10 loose bowel movements a day which have been bloody in nature. He has also had subjective fever. He presented to the emergency room where he had a CAT scan which showed thickening of the descending and sigmoid colon. He was seen in consultation by GI and is scheduled for a colonoscopy. In addition, the patient was found to be profoundly anemic and his hemoglobin is presently 6.7. Patient had attributed his bloody diarrhea to hemorrhoids. He denies any ill contacts. He lives at home with his significant other who has been well. He has not traveled. He did take antibiotics as described for his acne. He is originally from the [place], has been living in the [facility] for the past 20 years. His last travel back to the [place] was 2 years ago. 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 PAST MEDICAL HISTORY: Positive for hemorrhoids. ALLERGIES: No known allergies. MEDICATIONS: Include iron, Protonix. SOCIAL HISTORY: As per HPI. LABORATORY DATA: White count 8.3, neutrophils 64, lymphocytes 25, monocytes 9, hematocrit 21.4, platelets 395. Creatinine 0.8. Urine analysis 20 white cells. Stool studies are pending. Clostridium difficile negative. PHYSICAL EXAMINATION: General: He is pale. He is in no acute distress. Vital Signs: Temperature 99.1, blood pressure 122/73, pulse 92 regular, respirations 18 per minute. HEENT: Sclerae are anicteric. Heart: Sounds S1, S2. Lungs: Clear. Abdomen: Soft. No tenderness elicited. Extremities: Negative for edema. IMPRESSION: 1. Bloody diarrhea with CAT scan evidence of colitis, rule out infectious versus inflammatory etiology. 2. Severe anemia. Await stool studies. Empiric antibiotic coverage with ceftriaxone and Flagyl for possible enteric pathogens. GI evaluation. Patient is for colonoscopy. Prognosis is guarded. Thank you for the kind referral. CAREY MARCELO M.D. ARIEL/[id number]
--- NOTE | 2019-12-01 12:00 | PN ---
Teaching Attending Note Name of Resident: Chirag Sylvester ATTENDING PHYSICIAN STATEMENT I saw and evaluated the patient. I reviewed the resident's note and discussed the case with the resident. I agree with the resident's findings and plan as documented. SUBJECTIVE: pt seen and examined OBJECTIVE: Last Vital Signs Temp Pulse Resp BP Pulse Ox 99.1 F 92 H 18 122/73 97 12/01/19 10:20 12/01/19 10:20 12/01/19 10:20 12/01/19 10:20 12/01/19 10:20 GENERAL: Awake, alert, and fully oriented, in no acute distress. HEAD: Normal with no signs of trauma. EYES: Pupils equal, round and reactive to light, sclera anicteric, conjunctiva clear. LUNGS: Breath sounds equal, clear to auscultation bilaterally. No wheezes, and no crackles. No accessory muscle use. HEART: Regular rate and rhythm, normal S1 and S2 ABDOMEN: Soft, nontender, not distended MUSCULOSKELETAL: Normal range of motion at all joints. No bony deformities or tenderness. No CVA tenderness. UPPER EXTREMITIES: 2+ pulses, warm, well-perfused. No cyanosis. No clubbing. No peripheral edema. LOWER EXTREMITIES: 2+ pulses, warm, well-perfused. No calf tenderness. No peripheral edema. NEUROLOGICAL: Cranial nerves II-XII intact. Normal speech. CBCD WBC 8.3 K/mm3 (4.0-10.0) 12/01/19 05:40 RBC 3.28 M/mm3 (4.00-5.60) L 12/01/19 05:40 Hgb 6.7 GM/dL (11.7-16.9) L* 12/01/19 05:40 Hct 21.4 % (35.4-49) L 12/01/19 05:40 MCV 65.3 fl (80-96) L 12/01/19 05:40 MCHC 31.4 g/dl (32.0-35.9) L 12/01/19 05:40 RDW 23.7 % (11.9-15.9) H 12/01/19 05:40 Plt Count 395 K/MM3 (134-434) 12/01/19 05:40 MPV 7.6 fl (7.5-11.1) 12/01/19 05:40 CMP Sodium 139 mmol/L (136-145) 12/01/19 05:40 Potassium 4.0 mmol/L (3.5-5.1) 12/01/19 05:40 Chloride 107 mmol/L (98-107) 12/01/19 05:40 Carbon Dioxide 26 mmol/L (21-32) 12/01/19 05:40 Anion Gap 7 MMOL/L (8-16) L 12/01/19 05:40 BUN 8.5 mg/dL (7-18) 12/01/19 05:40 Creatinine 0.8 mg/dL (0.55-1.3) 12/01/19 05:40 Calcium 7.7 mg/dL (8.5-10.1) L 12/01/19 05:40 Total Bilirubin 0.6 mg/dL (0.2-1) 12/01/19 05:40 AST 16 U/L (15-37) 12/01/19 03:00 ALT 27 U/L (13-61) 12/01/19 03:00 Alkaline Phosphatase 43 U/L (45-117) L 12/01/19 03:00 Total Protein 6.1 g/dl (6.4-8.2) L 12/01/19 03:00 Albumin 3.3 g/dl (3.4-5.0) L 12/01/19 03:00 Active Medications Sodium Chloride (Normal Saline -) 1,000 mls @ 100 mls/hr IV ASDIR ARCHIE Last Admin: 12/01/19 02:47 Dose: 100 mls/hr Documented by: Ceftriaxone Sodium 2 gm/ (Dextrose) 100 mls @ 200 mls/hr IVPB DAILY ARCHIE; Protocol Metronidazole (Flagyl 500mg Premixed Ivpb -) 500 mg in 100 mls @ 100 mls/hr IVPB Q8H-IV ARCHIE Pantoprazole Sodium (Protonix -) 40 mg PO DAILY ARCHIE Last Admin: 12/01/19 09:30 Dose: 40 mg Documented by: ASSESSMENT AND PLAN: 34 y o Man with Mhx of hemorrhoids who presents today after 6 days of acute diarrhea # Colitis - similar episodes in past - cdiff negative - other etiologies to consider Ulcerative colitis, infectious colitis? - colonoscopy cancelled due to acute on chronic anemia - calprotectin pending, rest of infectious/inflammatory work up negative - IV hydration - NPO - tele monitoring given the recent drop in Hg - ID input appreciated - GI following # Acute on chronic anemia - trend H&H q12H for now - transfused - keep Hg>7 - BM mounting response. Iron def. - cc of backpain/ transient tightness - VS stable following transfusion, no fever pruritis - obtain CXR to rule out TACO/TRALI (though no clinical evidence) - EKG reviewed DVT prophylaxis
--- NOTE | 2019-12-01 12:13 | PN.GI ---
GI Progress Note Subjective: GI NOte: Colonoscopy cancelled when Annalisa developed back and chest pain. Hb dropped to 6.8 with the bowel prep. Has been transfused. EKG is unremarkable. The chest pain has resolved. Still having bloody diarrhea. Negative for C diff toxin and has no WBCs on stool gram stain. Being transferred to telemetry - Objective Vital Signs: Vital Signs Temperature 99.1 F 12/01/19 10:20 Pulse Rate 92 H 12/01/19 10:20 Respiratory Rate 18 12/01/19 10:20 Blood Pressure 122/73 12/01/19 10:20 O2 Sat by Pulse Oximetry (%) 97 12/01/19 10:20 Laboratory Tests 11/30/19 11/30/19 12/01/19 07:30 19:23 03:00 Hgb 8.0 L 7.2 L 6.5 L* Laboratory Tests 12/01/19 11:15 Creatine Kinase Pending Troponin I Pending Constitutional: Anxious Eyes: Yes: Conjunctiva Clear Cardiovascular: Yes: Regular Rate and Rhythm Respiratory: Yes: CTA Bilaterally ...Auscultate: Yes: Hyperactive Bowel Sounds ...Palpate: Yes: Soft, Other (no focal tenderness) Labs: CBC, BMP 12/01/19 11:15 12/01/19 05:40 INR, PTT INR 1.25 (0.83-1.09) H 12/01/19 05:40 Assessment/Plan Impression: - Suspect ulcerative colitis. His Accutane exposure raises the possibility of ulcerative colitis. Plan: -- Cardiology evaluation -- Clear liquids -- If cardiologically cleared then Dr Maddox will do colonoscopy tomorrow. I d iscussed this with Annalisa. Problem List - Problems (1) GI bleed Code(s): K92.2 - GASTROINTESTINAL HEMORRHAGE, UNSPECIFIED Qualifiers: GI bleed type/associated pathology: unspecified gastrointestinal hemorrhage type Qualified Code(s): K92.2 - Gastrointestinal hemorrhage, unspecified (2) Bloody diarrhea Code(s): R19.7 - DIARRHEA, UNSPECIFIED (3) Acne vulgaris Code(s): L70.0 - ACNE VULGARIS (4) Chest pain Code(s): R07.9 - CHEST PAIN, UNSPECIFIED (5) Back pain Code(s): M54.9 - DORSALGIA, UNSPECIFIED
[2019-12-01 12:19] LABS: HEMOGLOBIN 6.8 GM/dL (11.7-16.9)
[2019-12-01] MEDS: ACETAMINOPHEN 1000 MG/100 ML VIAL (NON FORMULARY) IVPB PRN (12:41)
--- NOTE | 2019-12-01 13:02 | CON.CARD ---
Consult Consult Specialty:: Cardiology - History of Present Illness Chief Complaint: mild chest pain s/p PRBC transfussion. History of Present Illness: 34yo M with known hemorrhoids who presents today after 6 days of acute diarrhea. Patient reports he went for a COVID PCR test on Sunday and upon waking on Sunday he started having LLQ pain and developed diarrhea. Last meal before symptoms was a home-cooked chicken dish. Unfortunately patient had micah blood in the toilet at this time and had multiple episodes of bloody diarrhea. Patient reports he has had episodes of bloody diarrhea years before, but he was never symptomatic from them. Patient notes that today he became dizzy and lightheaded and sought medical evaluation. Pt endorses minimal abdominal tenderness mostly in LLQ without any radiation and characterized as a dull ache. In the ED patient was noted to have Hgb of 7.0 with severe iron deficiency. Patient has never received transfusion before. He has never seen a environmental sciences professor and denies any family history of cancers. - History Source History Provided By: Patient, Medical Record - Past Surgical History Past Surgical History: Yes: None - Alcohol/Substance Use Hx Alcohol Use: Yes (once a month) History of Substance Use: reports: None - Smoking History Smoking history: Never smoked - Social History Usual Living Arrangement: With Significant Other ADL: Independent Occupation: night club promoter Home Medications - Allergies Allergies/Adverse Reactions: Allergies Allergy/AdvReac Type Severity Reaction Status Date / Time No Known Allergies Allergy Verified 11/29/19 10:55 - Home Medications Home Medications: Ambulatory Orders Amoxicillin 100 mg PO DAILY 12/01/19 Review of Systems - Review of Systems Constitutional: reports: No Symptoms Eyes: reports: No Symptoms HENT: reports: No Symptoms Neck: reports: No Symptoms Cardiovascular: reports: Chest Pain (mild transient after transfussion. Reports good exercise tolerance in excess 4.6 METS before admission) Gastrointestinal: reports: No Symptoms Genitourinary: reports: No Symptoms Breasts: reports: No Symptoms Reported Musculoskeletal: reports: No Symptoms Integumentary: reports: No Symptoms Neurological: reports: No Symptoms Endocrine: reports: No Symptoms Hematology/Lymphatic: reports: No Symptoms Psychiatric: reports: No Symptoms Vital Signs: Vital Signs Temperature 99.1 F 12/01/19 10:20 Pulse Rate 92 H 12/01/19 10:20 Respiratory Rate 18 12/01/19 10:20 Blood Pressure 122/73 12/01/19 10:20 O2 Sat by Pulse Oximetry (%) 97 12/01/19 10:20 Constitutional: Yes: Well Nourished, No Distress, Calm Eyes: Yes: WNL, Conjunctiva Clear, EOM Intact HENT: Yes: WNL, Atraumatic, Normocephalic Neck: Yes: WNL, Supple, Trachea Midline Respiratory: Yes: WNL, Regular, CTA Bilaterally Gastrointestinal: Yes: WNL, Normal Bowel Sounds Renal/: Yes: WNL Cardiovascular: Yes: WNL, Regular Rate and Rhythm Musculoskeletal: Yes: WNL Extremities: Yes: WNL Integumentary: Yes: WNL Neurological: Yes: WNL, Alert, Oriented ...Motor Strength: WNL Psychiatric: Yes: WNL, Alert, Oriented - Other Data Labs, Other Data: CBC, BMP 12/01/19 11:15 12/01/19 05:40 INR, PTT INR 1.25 (0.83-1.09) H 12/01/19 05:40 Troponin, BNP 12/01/19 11:15 Troponin I < 0.02 Troponin, BNP 12/01/19 11:15 Troponin I < 0.02 Imaging - Results Chest X-ray: Image Reviewed (no i/e) EKG: Image Reviewed (sr wnl) Problem List - Problems (1) Acne vulgaris Code(s): L70.0 - ACNE VULGARIS (2) Anemia Code(s): D64.9 - ANEMIA, UNSPECIFIED Qualifiers: Anemia type: unspecified type Qualified Code(s): D64.9 - Anemia, unspecified (3) Back pain Code(s): M54.9 - DORSALGIA, UNSPECIFIED (4) Bloody diarrhea Code(s): R19.7 - DIARRHEA, UNSPECIFIED (5) Chest pain Code(s): R07.9 - CHEST PAIN, UNSPECIFIED (6) GI bleed Code(s): K92.2 - GASTROINTESTINAL HEMORRHAGE, UNSPECIFIED Qualifiers: GI bleed type/associated pathology: unspecified gastrointestinal hemorrhage type Qualified Code(s): K92.2 - Gastrointestinal hemorrhage, unspecified (7) Hemorrhoids Code(s): K64.9 - UNSPECIFIED HEMORRHOIDS Qualifiers: Hemorrhoid type: unspecified Qualified Code(s): K64.9 - Unspecified hemorrhoids Assessment/Plan 34yo M with known hemorrhoids who presents today after 6 days of acute diarrhea. and severe anemia. Developed mild CP post PRBC transfussion. EKG normal CE negative. Good exercise tolerance in excess 4.6 METS before admission, no history of CAD/MN/CHF. Plan; Patient is low risk for colonoscopy and it is cleared for the procedure. f/u EKG
[2019-12-01] MEDS: CEFTRIAXONE 2 GM in DEXTROSE 5%-WATER 100 ML IVPB SCH (13:34)
[2019-12-01] MEDS: FUROSEMIDE 40 MG/4 ML INJECTABLE VIAL IVPUSH ONE ×2 (16:35→20:34)
--- NOTE | 2019-12-01 16:55 | EKG ---
Test Reason : Blood Pressure : / mmHG Vent. Rate : 091 BPM Atrial Rate : 091 BPM P-R Int : 144 ms QRS Dur : 092 ms QT Int : 350 ms P-R-T Axes : 019 020 004 degrees QTc Int : 430 ms NORMAL SINUS RHYTHM NORMAL ECG WHEN COMPARED WITH ECG OF 29-NOV-2019 12:20, NO SIGNIFICANT CHANGE WAS FOUND Confirmed by OZZY HOOVER MD ([id number]) on 12/01/2019 4:55:21 PM Referred By: JES WEINBERG Confirmed By:OZZY HOOVER MD
[2019-12-01 22:00] LABS: BASO % 0.2 % (0-2.0); EOS % 1.9 % (0-4.5); HEMOGLOBIN 7.6 GM/dL (11.7-16.9); LYMPH % 25.7 % (8-40); MCH 21.9 pg (25.7-33.7); MCHC 31.7 g/dl (32.0-35.9); MEAN CELL VOLUME 69.1 fl (80-96); MEAN PLT VOLUME 7.4 fl (7.5-11.1); MONO % 10.8 % (3.8-10.2); NEUT % 61.4 % (42.8-82.8); PLATELET COUNT 352 K/MM3 (134-434); RBC 3.48 M/mm3 (4.00-5.60); RDW 26.2 % (11.9-15.9); WHITE BLOOD COUNT 7.3 K/mm3 (4.0-10.0)
[2019-12-02] MEDS: ACETAMINOPHEN 1000 MG/100 ML VIAL (NON FORMULARY) IVPB PRN (00:26)
[2019-12-02] MEDS: SODIUM CHLORIDE 1,000 ML IV SCH ×2 (01:07→14:26)
[2019-12-02 07:24] LABS: BASO % 0.6 % (0-2.0); EOS % 2.6 % (0-4.5); HEMATOCRIT 23.2 % (35.4-49); HEMOGLOBIN 7.4 GM/dL (11.7-16.9); MCH 22.1 pg (25.7-33.7); MCHC 31.7 g/dl (32.0-35.9); MEAN CELL VOLUME 69.6 fl (80-96); MEAN PLT VOLUME 7.7 fl (7.5-11.1); MONO % 12.1 % (3.8-10.2); NEUT % 52.7 % (42.8-82.8); PLATELET COUNT 344 K/MM3 (134-434); RBC 3.33 M/mm3 (4.00-5.60); RDW 26.1 % (11.9-15.9); WHITE BLOOD COUNT 7.2 K/mm3 (4.0-10.0)
[2019-12-02 08:01] LABS: ALBUMIN 3.1 g/dl (3.4-5.0); BILIRUBIN,TOTAL 0.5 mg/dL (0.2-1); BLOOD UREA NITROGEN 8.8 mg/dL (7-18); CREATININE 0.8 mg/dL (0.55-1.3); MAGNESIUM 2.3 mg/dL (1.8-2.4); PHOSPHOROUS 3.2 mg/dL (2.5-4.9); POTASSIUM 3.6 mmol/L (3.5-5.1); TOT PROT 5.9 g/dl (6.4-8.2)
[2019-12-02 08:02] LABS: CALCIUM 7.9 mg/dL (8.5-10.1)
[2019-12-02] MEDS ORDERED: DEXTROSE 5%-WATER 100 ML IVPB ONE (08:58)
[2019-12-02] MEDS: CEFTRIAXONE 2 GM in DEXTROSE 5%-WATER 100 ML IVPB SCH (09:25)
[2019-12-02 10:07] LABS: TRANSGLUTAMINASE IGA < 2 U/mL (0-3); TRANSGLUTAMINASE IGG 6 U/mL (0-5)
--- NOTE | 2019-12-02 12:26 | EKG ---
Test Reason : Blood Pressure : / mmHG Vent. Rate : 085 BPM Atrial Rate : 085 BPM P-R Int : 152 ms QRS Dur : 094 ms QT Int : 374 ms P-R-T Axes : 006 009 000 degrees QTc Int : 445 ms NORMAL SINUS RHYTHM NORMAL ECG WHEN COMPARED WITH ECG OF 01-DEC-2019 10:52, NO SIGNIFICANT CHANGE WAS FOUND Confirmed by Gus Arreaga ([id number]) on 12/02/2019 12:25:48 PM Referred By: ULICES NAVARRO Confirmed By:Gus Arreaga
--- NOTE | 2019-12-02 12:42 | PN ---
Progress Note (short form) - Note Progress Note: Colonoscopy complete. Report placed in the procedural section of the physical chart and will be scanned into [employer].
--- NOTE | 2019-12-02 12:45 | PN ---
Physical Exam: SUBJECTIVE: Patient seen and examined at bedside. No acute events reported overnight. OBJECTIVE: Vital Signs Period Temp Pulse Resp BP Sys/[place] Pulse Ox Last 24 Hr 98 F-99.4 F 77-93 16-18 102-138/52-76 97-100 GENERAL: AAOx3, in no acute distress. laying in bed HEENT: NCAT, PERRLA, EOMI, sclera anicteric, conjunctiva clear, oropharynx clear w/o exudates. MMM. NECK: Normal ROM, supple, no lymphadenopathy, JVD, or masses LUNGS: CTABL no wheezes/ rhonchi/ rales. No distress, speaks in full sentences. No increased work of breathing. HEART: RRR, normal S1 S2, no M/R/G, peripheral pulses 2+ and equal b/l ABDOMEN: Soft, NTND, + BS. No guarding or rebound. No hepatomegaly or splenomegaly. MSK: ROM WNL. Diffuse tenderness in low back-improved from yesterday EXTREMITIES: Normal inspection. No peripheral edema. No clubbing or cyanosis. NEUROLOGICAL: CN II-XII intact. Normal speech, normal gait, no focal sensorimotor deficits. SKIN: Warm, Dry, normal turgor, no rashes or lesions noted Laboratory Results - last 24 hr CBC, BMP 12/02/19 06:05 12/02/19 06:05 11/29/19 11/30/19 12/01/19 13:21 13:33 05:40 WBC RBC Hgb Hct MCV MCH MCHC RDW Plt Count MPV Absolute Neuts (auto) Neutrophils % Lymphocytes % Monocytes % Eosinophils % Basophils % Nucleated RBC % Sodium Potassium Chloride Carbon Dioxide Anion Gap BUN Creatinine Est GFR (CKD-EPI)AfAm Est GFR (CKD-EPI)NonAf Random Glucose Calcium Phosphorus Magnesium Total Bilirubin AST ALT Alkaline Phosphatase Total Protein Albumin Triglycerides Cholesterol Total LDL Cholesterol HDL Cholesterol TSH Tiss Transglutamin IgG 6 H Tiss Transglutamin IgA < 2 Hep C Ab Diagnostic <0.1 Blood Type A POSITIVE Antibody Screen Negative Crossmatch See Detail 12/01/19 12/02/19 12/02/19 21:00 06:05 06:05 WBC 7.3 7.2 RBC 3.48 L 3.33 L Hgb 7.6 L 7.4 L Hct 24.0 L 23.2 L MCV 69.1 L 69.6 L MCH 21.9 L 22.1 L MCHC 31.7 L 31.7 L RDW 26.2 H 26.1 H Plt Count 352 344 MPV 7.4 L 7.7 Absolute Neuts (auto) 4.4 3.8 Neutrophils % 61.4 52.7 Lymphocytes % 25.7 32.0 D Monocytes % 10.8 H 12.1 H Eosinophils % 1.9 2.6 Basophils % 0.2 0.6 Nucleated RBC % 0 0 Sodium 138 Potassium 3.6 Chloride 105 Carbon Dioxide 27 Anion Gap 6 L BUN 8.8 Creatinine 0.8 Est GFR (CKD-EPI)AfAm 133.20 Est GFR (CKD-EPI)NonAf 114.93 Random Glucose 84 Calcium 7.9 L Phosphorus 3.2 Magnesium 2.3 Total Bilirubin 0.5 AST 16 ALT 27 Alkaline Phosphatase 42 L Total Protein 5.9 L Albumin 3.1 L Triglycerides 82 Cholesterol 102 Total LDL Cholesterol 68 HDL Cholesterol 26 L TSH 2.61 Tiss Transglutamin IgG Tiss Transglutamin IgA Hep C Ab Diagnostic Blood Type Antibody Screen Crossmatch Active Medications Generic Name Dose Route Start Last Admin Trade Name Freq PRN Reason Stop Dose Admin Acetaminophen 1,000 mg 12/01/19 11:59 12/02/19 00:26 Ofirmev Injection - IVPB 1,000 mg Q6H PRN Administration PAIN LEVEL 6-10 Sodium Chloride 1,000 mls @ 100 mls/hr 11/30/19 13:45 12/02/19 01:07 Normal Saline - IV 100 mls/hr ASDIR ARCHIE Administration Ceftriaxone Sodium 2 gm/ 100 mls @ 200 mls/hr 12/01/19 12:00 12/02/19 09:25 Dextrose IVPB 200 mls/hr DAILY ARCHIE Administration Protocol Metronidazole 500 mg in 100 mls @ 100 mls/hr 12/01/19 11:45 12/02/19 09:25 Flagyl 500mg Premixed Ivpb - IVPB 100 mls/hr Q8H-IV ARCHIE Administration Pantoprazole Sodium 40 mg 12/01/19 10:00 12/01/19 09:30 Protonix - PO 40 mg DAILY ARCHIE Administration ASSESSMENT/PLAN: 34 y/o Male with PMx of hemorrhoids who presents today after 7 days of acute bloody diarrhea. Admitted for suspected C. diff colitis vs. UC. #Colitis with suspicion for Ulcerative Colitis -Ulcerative colitis suspected given patient's history of bloody diarrhea in the past and chronic BRIE -GI consult: colonoscopy done today with Dr. Maddox; Endoscopy tomorrow -Colonscopy 12/01:mild diverticulosis, grainy appearing mucosa in retosigmoid colon; patchy erythema in sigmoid colon; no significant pathology noted -c/w IV hydration -isolation precautions -C. diff toxin-negative -ID consult: Dr. Ansari d/c abx #Iron Deficiency Anemia -s/p 4U transfer; Hg this AM 7.4 -continue to monitor CBC and tranfuse if <7 #Chest Pain -resolved -Patient had mild chest pain on 12/01 40 minutes after transfusion -trops negative -CXR- negative for acute pathology -EKG-NSR -20 IV Lasix ordered in between transfusion units -Cardio consult: cleared for procedure #FEN -NS @ 100 mls/hr -monitor lytes and Hg; replete PRN -full liquid diet today; NPO after midnight dispo: continue to monitor in m/s Visit type - Emergency Visit Emergency Visit: No - New Patient This patient is new to me today: No - Critical Care Critical Care patient: No - Discharge Referral Referred to [facility] Med P.C[facility] No ATTENDING PHYSICIAN STATEMENT I saw and evaluated the patient. I reviewed the resident's note and discussed the case with the resident. I agree with the resident's findings and plan as documented. SUBJECTIVE: OBJECTIVE: ASSESSMENT AND PLAN:
--- NOTE | 2019-12-02 13:48 | PN ---
Progress Note, Physician History of Present Illness: S/P COLONOSCOPY DISCUSSED WITH GI NO SIGNIFICANT PATHOLOGY NO DIARRHEA/ RECTAL BLEED TODAY C DIFF (-) COLONIC FLUID (-) NO C/O ABDOMINAL PAIN NO FEVER/ CHILLS - Current Medication List Current Medications: Active Medications Acetaminophen (Ofirmev Injection -) 1,000 mg IVPB Q6H PRN PRN Reason: PAIN LEVEL 6-10 Last Admin: 12/02/19 00:26 Dose: 1,000 mg Documented by: Sodium Chloride (Normal Saline -) 1,000 mls @ 100 mls/hr IV ASDIR ARCHIE Last Admin: 12/02/19 01:07 Dose: 100 mls/hr Documented by: Ceftriaxone Sodium 2 gm/ (Dextrose) 100 mls @ 200 mls/hr IVPB DAILY ARCHIE; Protocol Last Admin: 12/02/19 09:25 Dose: 200 mls/hr Documented by: Metronidazole (Flagyl 500mg Premixed Ivpb -) 500 mg in 100 mls @ 100 mls/hr IVPB Q8H-IV ARCHIE Last Admin: 12/02/19 09:25 Dose: 100 mls/hr Documented by: Pantoprazole Sodium (Protonix -) 40 mg PO DAILY ARCHIE Last Admin: 12/01/19 09:30 Dose: 40 mg Documented by: - Objective Vital Signs: Vital Signs Temperature 98 F 12/02/19 12:26 Pulse Rate 75 12/02/19 12:56 Respiratory Rate 15 12/02/19 12:56 Blood Pressure 116/73 12/02/19 12:56 O2 Sat by Pulse Oximetry (%) 100 12/02/19 12:56 Constitutional: Yes: No Distress Eyes: Yes: Conjunctiva Clear Cardiovascular: Yes: Regular Rate and Rhythm, S1, S2 Respiratory: Yes: CTA Bilaterally, Wheezes Gastrointestinal: Yes: Normal Bowel Sounds, Soft. No: Tenderness Edema: No Labs: CBC, BMP 12/02/19 06:05 12/02/19 06:05 INR, PTT INR 1.25 (0.83-1.09) H 12/01/19 05:40 Assessment/Plan S/P LOWER GI BLEED SEVERE ANEMIA DISCUSSED WITH GI D/C ANTIBIOTICS, OBSERVE OFF
[2019-12-02 13:50] LABS: HEMATOCRIT 23.2 % (35.4-49); HEMOGLOBIN 7.3 GM/dL (11.7-16.9); MCH 21.9 pg (25.7-33.7); MCHC 31.4 g/dl (32.0-35.9); MEAN CELL VOLUME 69.8 fl (80-96); MEAN PLT VOLUME 7.1 fl (7.5-11.1); PLATELET COUNT 353 K/MM3 (134-434); RBC 3.32 M/mm3 (4.00-5.60); RDW 26.1 % (11.9-15.9); WHITE BLOOD COUNT 6.5 K/mm3 (4.0-10.0)
--- NOTE | 2019-12-02 14:09 | PN ---
Teaching Attending Note Name of Resident: Chirag Sylvester ATTENDING PHYSICIAN STATEMENT I saw and evaluated the patient. I reviewed the resident's note and discussed the case with the resident. I agree with the resident's findings and plan as documented. SUBJECTIVE: Feels okay. Denies abdominal pain. Some blood on BM today. No CP/palps/SOB/lightheadedness. OBJECTIVE: Afebrile, Hemodynamically Stable. Last Vital Signs Temp Pulse Resp BP Pulse Ox 98 F 75 15 116/73 100 12/02/19 12:26 12/02/19 12:56 12/02/19 12:56 12/02/19 12:56 12/02/19 12:56 HEENT - Atraumatic, Normocephalic. Heart - S1, S2, RRR Lungs - clear to auscultation Abdomen - Soft, non-tender. Bowel Sounds normal. Extremities - no edema, no calf tenderness Neuro - AAO x 3. Tone/Power normal. Laboratory Results - last 24 hr 11/29/19 11/30/19 12/01/19 13:21 13:33 05:40 WBC RBC Hgb Hct MCV MCH MCHC RDW Plt Count MPV Absolute Neuts (auto) Neutrophils % Lymphocytes % Monocytes % Eosinophils % Basophils % Nucleated RBC % Sodium Potassium Chloride Carbon Dioxide Anion Gap BUN Creatinine Est GFR (CKD-EPI)AfAm Est GFR (CKD-EPI)NonAf Random Glucose Calcium Phosphorus Magnesium Total Bilirubin AST ALT Alkaline Phosphatase Total Protein Albumin Triglycerides Cholesterol Total LDL Cholesterol HDL Cholesterol TSH Tiss Transglutamin IgG 6 H Tiss Transglutamin IgA < 2 Hep C Ab Diagnostic <0.1 Blood Type A POSITIVE Antibody Screen Negative Crossmatch See Detail 12/01/19 12/02/19 12/02/19 21:00 06:05 06:05 WBC 7.3 7.2 RBC 3.48 L 3.33 L Hgb 7.6 L 7.4 L Hct 24.0 L 23.2 L MCV 69.1 L 69.6 L MCH 21.9 L 22.1 L MCHC 31.7 L 31.7 L RDW 26.2 H 26.1 H Plt Count 352 344 MPV 7.4 L 7.7 Absolute Neuts (auto) 4.4 3.8 Neutrophils % 61.4 52.7 Lymphocytes % 25.7 32.0 D Monocytes % 10.8 H 12.1 H Eosinophils % 1.9 2.6 Basophils % 0.2 0.6 Nucleated RBC % 0 0 Sodium 138 Potassium 3.6 Chloride 105 Carbon Dioxide 27 Anion Gap 6 L BUN 8.8 Creatinine 0.8 Est GFR (CKD-EPI)AfAm 133.20 Est GFR (CKD-EPI)NonAf 114.93 Random Glucose 84 Calcium 7.9 L Phosphorus 3.2 Magnesium 2.3 Total Bilirubin 0.5 AST 16 ALT 27 Alkaline Phosphatase 42 L Total Protein 5.9 L Albumin 3.1 L Triglycerides 82 Cholesterol 102 Total LDL Cholesterol 68 HDL Cholesterol 26 L TSH 2.61 Tiss Transglutamin IgG Tiss Transglutamin IgA Hep C Ab Diagnostic Blood Type Antibody Screen Crossmatch 12/02/19 13:40 WBC 6.5 RBC 3.32 L Hgb 7.3 L Hct 23.2 L MCV 69.8 L MCH 21.9 L MCHC 31.4 L RDW 26.1 H Plt Count 353 MPV 7.1 L Absolute Neuts (auto) Neutrophils % Lymphocytes % Monocytes % Eosinophils % Basophils % Nucleated RBC % Sodium Potassium Chloride Carbon Dioxide Anion Gap BUN Creatinine Est GFR (CKD-EPI)AfAm Est GFR (CKD-EPI)NonAf Random Glucose Calcium Phosphorus Magnesium Total Bilirubin AST ALT Alkaline Phosphatase Total Protein Albumin Triglycerides Cholesterol Total LDL Cholesterol HDL Cholesterol TSH Tiss Transglutamin IgG Tiss Transglutamin IgA Hep C Ab Diagnostic Blood Type Antibody Screen Crossmatch Current Medications Generic Name Dose Route Start Last Admin Trade Name Freq PRN Reason Stop Dose Admin Acetaminophen 1,000 mg 12/01/19 11:59 12/02/19 00:26 Ofirmev Injection - IVPB 1,000 mg Q6H PRN Administration PAIN LEVEL 6-10 Sodium Chloride 1,000 mls @ 100 mls/hr 11/30/19 13:45 12/02/19 01:07 Normal Saline - IV 100 mls/hr ASDIR ARCHIE Administration Pantoprazole Sodium 40 mg 12/01/19 10:00 12/01/19 09:30 Protonix - PO 40 mg DAILY ARCHIE Administration Home Medications Medication Instructions Recorded Amoxicillin 100 mg PO DAILY 12/01/19 ASSESSMENT AND PLAN: 34 year old male with history of hemorrhoids presents with 6 days of bloody diarrhea. 1. Acute Colitis s/p colonoscopy, no acute findings, awaiting pathology report Cdiff negative TTG positive, will defer interpretation to GI. Diet advancement as per GI 2. Acute Blood Loss Anemia secondary to GI blood loss H/H 7.3/23.2 s/p 4 units PRBCs. Ferritin 4.8/Iron Sat 4% s/p [place] - no acute bleed identified. Continue PPI EGD as per GI DVT Px - SCDs.
[2019-12-02] MEDS: PANTOPRAZOLE 40 MG TABLET PO SCH (14:26)
--- NOTE | 2019-12-02 16:36 | PN ---
Progress Note, Physician Chief Complaint: Pt A&Ox3; no chest pain or dyspnea. History of Present Illness: Mr. Glass is a 34 yr old man (b [facility]), with known hemorrhoids, who presents today after 6 days of acute diarrhea. Patient reports he went for a COVID PCR test on Sunday and upon waking on Sunday he started having LLQ pain and developed diarrhea. Last meal before symptoms was a home-cooked chicken dish. Unfortunately patient had micah blood in the toilet at this time and had multiple episodes of bloody diarrhea. Patient reports he has had episodes of bloody diarrhea years before, but he was never symptomatic from them. Patient notes that today he became dizzy and lightheaded and sought medical evaluation. Pt endorses minimal abdominal tenderness mostly in LLQ without any radiation and characterized as a dull ache. In the ED patient was noted to have Hgb of 7.0 with severe iron deficiency. Patient has never received transfusion before. He has never seen a watch parts grinder and denies any family history of cancers. - Current Medication List Current Medications: Active Medications Acetaminophen (Ofirmev Injection -) 1,000 mg IVPB Q6H PRN PRN Reason: PAIN LEVEL 6-10 Last Admin: 12/02/19 00:26 Dose: 1,000 mg Documented by: Sodium Chloride (Normal Saline -) 1,000 mls @ 100 mls/hr IV [facility] Last Admin: 12/02/19 14:26 Dose: 100 mls/hr Documented by: Pantoprazole Sodium (Protonix -) 40 mg PO DAILY [facility] Last Admin: 12/02/19 14:26 Dose: 40 mg Documented by: - Objective Vital Signs: Vital Signs Temperature 98.3 F 12/02/19 14:13 Pulse Rate 75 12/02/19 14:13 Respiratory Rate 14 12/02/19 14:13 Blood Pressure 121/73 12/02/19 14:13 O2 Sat by Pulse Oximetry (%) 100 12/02/19 12:56 Constitutional: Yes: No Distress, Obese Eyes: Yes: WNL HENT: Yes: WNL Neck: Yes: WNL Cardiovascular: Yes: Regular Rate and Rhythm, S1, S2 Respiratory: Yes: WNL Gastrointestinal: Yes: Soft. No: Tenderness ...Rectal Exam: Yes: Deferred, Other (for colonoscopy) Genitourinary: No: Anuria Breast(s): Yes: WNL Musculoskeletal: Yes: WNL Extremities: Yes: WNL Edema: No Peripheral Pulses WNL: Yes Integumentary: Yes: WNL Neurological: Yes: WNL ...Motor Strength: WNL Psychiatric: Yes: WNL Labs: CBC, BMP 12/02/19 13:40 12/02/19 06:05 INR, PTT INR 1.25 (0.83-1.09) H 12/01/19 05:40 Abnormal Lab Results 11/29/19 12/01/19 12/01/19 13:21 05:40 05:40 RBC Hgb Hct MCV MCH MCHC RDW MPV Monocytes % Anion Gap Calcium Alkaline Phosphatase Total Protein Albumin HDL Cholesterol Tiss Transglutamin IgG 6 H Hepatitis A Ab Total Positive H Crossmatch See Detail 12/02/19 12/02/19 12/02/19 06:05 06:05 13:40 RBC 3.33 L 3.32 L Hgb 7.4 L 7.3 L Hct 23.2 L 23.2 L MCV 69.6 L 69.8 L MCH 22.1 L 21.9 L MCHC 31.7 L 31.4 L RDW 26.1 H 26.1 H MPV 7.1 L Monocytes % 12.1 H Anion Gap 6 L Calcium 7.9 L Alkaline Phosphatase 42 L Total Protein 5.9 L Albumin 3.1 L HDL Cholesterol 26 L Tiss Transglutamin IgG Hepatitis A Ab Total Crossmatch - ....Imaging Chest X-ray: Image Reviewed EKG: Image Reviewed Assessment/Plan Mr Glass is a 34yo M with known hemorrhoids who presents today after 6 days of acute diarrhea. and severe anemia. Developed mild chest pain post PRBC transfusion. EKG normal CE negative. Good exercise tolerance easily > 4.6 METS before admission (pt exercises several times a week for 1-2 hour sessions, including vigorous cardiac workouts, with no chest pain or dyspnea). No personal or family hx of CAD/OR/CVA. No hx cigarettes. EKG: NSR; normal study. Plan: Patient is low risk for colonoscopy and it is cleared for the procedure. F/u TSH and lipid panel.
[2019-12-02] MEDS ORDERED: SODIUM CHLORIDE 1,000 ML IV SCH (22:35)
[2019-12-02 23:07] LABS: HEP B CORE AB, TOT Negative (Negative)
[2019-12-03 07:33] LABS: BASO % 0.6 % (0-2.0); EOS % 3.3 % (0-4.5); HEMATOCRIT 22.2 % (35.4-49); LYMPH % 31.6 % (8-40); MCH 22.1 pg (25.7-33.7); MCHC 31.7 g/dl (32.0-35.9); MEAN CELL VOLUME 69.9 fl (80-96); MEAN PLT VOLUME 7.3 fl (7.5-11.1); MONO % 10.6 % (3.8-10.2); NEUT % 53.9 % (42.8-82.8); PLATELET COUNT 355 K/MM3 (134-434); RBC 3.18 M/mm3 (4.00-5.60); RDW 26.6 % (11.9-15.9); WHITE BLOOD COUNT 5.3 K/mm3 (4.0-10.0)
--- NOTE | 2019-12-03 07:51 | PN ---
Progress Note, Physician History of Present Illness: 34yo M with known hemorrhoids who presents today after 6 days of acute diarrhea. Patient reports he went for a COVID PCR test on Sunday and upon waking on Sunday he started having LLQ pain and developed diarrhea. Last meal before symptoms was a home-cooked chicken dish. Unfortunately patient had micah blood in the toilet at this time and had multiple episodes of bloody diarrhea. Patient reports he has had episodes of bloody diarrhea years before, but he was never symptomatic from them. Patient notes that today he became dizzy and lightheaded and sought medical evaluation. Pt endorses minimal abdominal tenderness mostly in LLQ without any radiation and characterized as a dull ache. In the ED patient was noted to have Hgb of 7.0 with severe iron deficiency. Patient has never received transfusion before. He has never seen a transportation engineering technician and denies any family history of cancers. - Current Medication List Current Medications: Active Medications Acetaminophen (Ofirmev Injection -) 1,000 mg IVPB Q6H PRN PRN Reason: PAIN LEVEL 6-10 Last Admin: 12/02/19 00:26 Dose: 1,000 mg Documented by: Sodium Chloride (Normal Saline -) 1,000 mls @ 100 mls/hr IV ASDIR ARCHIE Last Admin: 12/03/19 02:42 Dose: 100 mls/hr Documented by: Pantoprazole Sodium (Protonix -) 40 mg PO DAILY ARCHIE - Objective Vital Signs: Vital Signs Temperature 98.6 F 12/03/19 06:00 Pulse Rate 80 12/03/19 06:00 Respiratory Rate 18 12/03/19 06:00 Blood Pressure 124/67 12/03/19 06:00 O2 Sat by Pulse Oximetry (%) 100 12/03/19 06:00 Eyes: Yes: WNL, Conjunctiva Clear, EOM Intact HENT: Yes: WNL, Atraumatic, Normocephalic Neck: Yes: WNL, Supple, Trachea Midline Cardiovascular: Yes: WNL, Regular Rate and Rhythm Respiratory: Yes: WNL, Regular, CTA Bilaterally Gastrointestinal: Yes: WNL, Normal Bowel Sounds Genitourinary: Yes: WNL Musculoskeletal: Yes: WNL Extremities: Yes: WNL Edema: No Integumentary: Yes: WNL Neurological: Yes: WNL, Alert, Oriented ...Motor Strength: WNL Psychiatric: Yes: WNL Labs: INR, PTT INR 1.25 (0.83-1.09) H 12/01/19 05:40 Problem List - Problems (1) Acne vulgaris Code(s): L70.0 - ACNE VULGARIS (2) Anemia Code(s): D64.9 - ANEMIA, UNSPECIFIED Qualifiers: Anemia type: unspecified type Qualified Code(s): D64.9 - Anemia, unspecified (3) Back pain Code(s): M54.9 - DORSALGIA, UNSPECIFIED (4) Bloody diarrhea Code(s): R19.7 - DIARRHEA, UNSPECIFIED (5) Chest pain Code(s): R07.9 - CHEST PAIN, UNSPECIFIED (6) GI bleed Code(s): K92.2 - GASTROINTESTINAL HEMORRHAGE, UNSPECIFIED Qualifiers: GI bleed type/associated pathology: unspecified gastrointestinal hemorrhage type Qualified Code(s): K92.2 - Gastrointestinal hemorrhage, unspecified (7) Hemorrhoids Code(s): K64.9 - UNSPECIFIED HEMORRHOIDS Qualifiers: Hemorrhoid type: unspecified Qualified Code(s): K64.9 - Unspecified hemorrhoids Assessment/Plan Mr Glass is a 34yo M with known hemorrhoids who presents today after 6 days of acute diarrhea. and severe anemia. Developed mild chest pain post PRBC transfusion. EKG normal CE negative. Good exercise tolerance easily > 4.6 METS before admission (pt exercises several times a week for 1-2 hour sessions, including vigorous cardiac workouts, with no chest pain or dyspnea). No personal or family hx of CAD/TX/CVA. No hx cigarettes. EKG: NSR; normal study. Plan: Patient is low risk for colonoscopy and it is cleared for the procedure. F/u TSH and lipid panel.
[2019-12-03 07:53] LABS: BILIRUBIN,TOTAL 0.3 mg/dL (0.2-1); CALCIUM 7.8 mg/dL (8.5-10.1); CREATININE 0.7 mg/dL (0.55-1.3); MAGNESIUM 2.3 mg/dL (1.8-2.4); PHOSPHOROUS 2.9 mg/dL (2.5-4.9); POTASSIUM 3.9 mmol/L (3.5-5.1); TOT PROT 5.7 g/dl (6.4-8.2)
[2019-12-03] MEDS: PANTOPRAZOLE 40 MG TABLET PO SCH (09:10)
--- NOTE | 2019-12-03 11:41 | PN ---
Progress Note (short form) - Note Progress Note: GI Procedure notes Please see EGD report. A small sliding hiatal hernia was found. No source off anemia or bleeding identified. The patient will need a capsule endoscopy as an outpatient. Which he can arrange with my partner DR. Nnamdi Varela at [phone]. Will give another Venofer infusion. Problem List - Problems (1) GI bleed Code(s): K92.2 - GASTROINTESTINAL HEMORRHAGE, UNSPECIFIED Qualifiers: GI bleed type/associated pathology: unspecified gastrointestinal hemorrhage type Qualified Code(s): K92.2 - Gastrointestinal hemorrhage, unspecified (2) Bloody diarrhea Code(s): R19.7 - DIARRHEA, UNSPECIFIED (3) Acne vulgaris Code(s): L70.0 - ACNE VULGARIS (4) Chest pain Code(s): R07.9 - CHEST PAIN, UNSPECIFIED (5) Back pain Code(s): M54.9 - DORSALGIA, UNSPECIFIED (6) Hiatal hernia Code(s): K44.9 - DIAPHRAGMATIC HERNIA WITHOUT OBSTRUCTION OR GANGRENE
[2019-12-03] MEDS ORDERED: IRON SUCROSE INJECTION 300 MG in SODIUM CHLORIDE 235 ML IVPB ONE (11:48)
--- NOTE | 2019-12-03 12:37 | PN ---
Physical Exam: SUBJECTIVE: Patient seen and examined at bedside. No acute events reported overnight. OBJECTIVE: Vital Signs Period Temp Pulse Resp BP Sys/[place] Pulse Ox Last 24 Hr 98.2 F-98.8 F 69-92 14-20 111-138/63-76 100-100 GENERAL: AAOx3, in no acute distress. laying in bed HEENT: NCAT, PERRLA, EOMI, sclera anicteric, conjunctiva clear, oropharynx clear w/o exudates. MMM. NECK: Normal ROM, supple, no lymphadenopathy, JVD, or masses LUNGS: CTABL no wheezes/ rhonchi/ rales. No distress, speaks in full sentences. No increased work of breathing. HEART: RRR, normal S1 S2, no M/R/G, peripheral pulses 2+ and equal b/l ABDOMEN: Soft, NTND, + BS. No guarding or rebound. No hepatomegaly or splenomegaly. MSK: ROM WNL. Diffuse tenderness in low back-improved from yesterday EXTREMITIES: Normal inspection. No peripheral edema. No clubbing or cyanosis. NEUROLOGICAL: CN II-XII intact. Normal speech, normal gait, no focal sensorimotor deficits. SKIN: Warm, Dry, normal turgor, no rashes or lesions noted Laboratory Results - last 24 hr CBC, BMP 12/03/19 06:55 12/03/19 06:55 11/29/19 11/30/19 12/01/19 13:21 08:15 05:40 WBC RBC Hgb Hct MCV MCH MCHC RDW Plt Count MPV Absolute Neuts (auto) Neutrophils % Lymphocytes % Monocytes % Eosinophils % Basophils % Nucleated RBC % Sodium Potassium Chloride Carbon Dioxide Anion Gap BUN Creatinine Est GFR (CKD-EPI)AfAm Est GFR (CKD-EPI)NonAf Random Glucose Calcium Phosphorus Magnesium Total Bilirubin AST ALT Alkaline Phosphatase Total Protein Albumin Stool O & P Wet Mount Hep A IgM Ab Confirm Negative Hepatitis A Ab Total Positive H Hep Bs Antigen Negative Hep Bs Antibody Non reactive Hep B Core Total Ab Negative Hep B Core IgM Ab Negative Hepatitis Be Antibody Negative Hepatitis Be Antigen Negative O & P Permanent Slide Final report Blood Type A POSITIVE Antibody Screen Negative Crossmatch See Detail 12/02/19 12/03/19 12/03/19 13:40 06:55 06:55 WBC 6.5 5.3 RBC 3.32 L 3.18 L Hgb 7.3 L 7.0 L Hct 23.2 L 22.2 L MCV 69.8 L 69.9 L MCH 21.9 L 22.1 L MCHC 31.4 L 31.7 L RDW 26.1 H 26.6 H Plt Count 353 355 MPV 7.1 L 7.3 L Absolute Neuts (auto) 2.9 Neutrophils % 53.9 Lymphocytes % 31.6 Monocytes % 10.6 H Eosinophils % 3.3 Basophils % 0.6 Nucleated RBC % 0 Sodium 140 Potassium 3.9 Chloride 108 H Carbon Dioxide 27 Anion Gap 6 L BUN 10.0 Creatinine 0.7 Est GFR (CKD-EPI)AfAm 140.71 Est GFR (CKD-EPI)NonAf 121.41 Random Glucose 85 Calcium 7.8 L Phosphorus 2.9 Magnesium 2.3 Total Bilirubin 0.3 AST 21 ALT 34 Alkaline Phosphatase 37 L Total Protein 5.7 L Albumin 3.0 L Stool O & P Wet Mount Hep A IgM Ab Confirm Hepatitis A Ab Total Hep Bs Antigen Hep Bs Antibody Hep B Core Total Ab Hep B Core IgM Ab Hepatitis Be Antibody Hepatitis Be Antigen O & P Permanent Slide Blood Type Antibody Screen Crossmatch Active Medications Generic Name Dose Route Start Last Admin Trade Name Freq PRN Reason Stop Dose Admin Acetaminophen 1,000 mg 12/01/19 11:59 12/02/19 00:26 Ofirmev Injection - IVPB 1,000 mg Q6H PRN Administration PAIN LEVEL 6-10 Sodium Chloride 1,000 mls @ 100 mls/hr 12/02/19 22:35 12/03/19 02:42 Normal Saline - IV 100 mls/hr ASDIR ARCHIE Administration Iron Sucrose 300 mg/ Sodium 250 mls @ 250 mls/hr 12/03/19 11:48 Chloride IVPB 12/03/19 12:47 ONCE ONE Pantoprazole Sodium 40 mg 12/03/19 10:00 12/03/19 09:10 Protonix - PO Not Given DAILY ARCHIE ASSESSMENT/PLAN: 34 y/o Male with PMx of hemorrhoids who presents today after 7 days of acute bloody diarrhea. Admitted for suspected C. diff colitis vs. UC. #Colitis -GI consult: s/p colonoscopy yesterday with Dr. Maddox; EGD today with Dr. Jim; capulse endoscopy in [address] Varela; Gaviscon 30 cc q4 PRN -Colonscopy 12/01:mild diverticulosis, grainy appearing mucosa in retosigmoid colon; patchy erythema in sigmoid colon; no significant pathology noted -EGD 12/02: small sliding hiatal hernia. no significant pathology noted -c/w IV hydration -isolation precautions -C. diff toxin-negative -ID consult: Dr. Ansari d/c abx #Iron Deficiency Anemia -s/p 4U transfer; Hg this AM 7.0 -1 unit ordered today; post transfusion CBC ordered for 7 PM -Venofer infusion today as per GI reccs -continue to monitor CBC and tranfuse if <7 #Chest Pain -resolved -Patient had mild chest pain on 12/01 40 minutes after transfusion -trops negative -CXR- negative for acute pathology -EKG-NSR -20 IV Lasix ordered in between transfusion units -Cardio consult: cleared for procedure #FEN -NS @ 100 mls/hr -monitor lytes and Hg; replete PRN -regular diet #Ppx -DVT: SCDs -GI: Protonix 40 mg daily dispo: continue to monitor in m/s Visit type - Emergency Visit Emergency Visit: No - New Patient This patient is new to me today: No - Critical Care Critical Care patient: No - Discharge Referral Referred to [facility] No ATTENDING PHYSICIAN STATEMENT I saw and evaluated the patient. I reviewed the resident's note and discussed the case with the resident. I agree with the resident's findings and plan as documented. SUBJECTIVE: OBJECTIVE: ASSESSMENT AND PLAN:
--- NOTE | 2019-12-03 13:51 | PN ---
Teaching Attending Note Name of Resident: Chirag Sylvester ATTENDING PHYSICIAN STATEMENT I saw and evaluated the patient. I reviewed the resident's note and discussed the case with the resident. I agree with the resident's findings and plan as documented. SUBJECTIVE: Feeling well. reports normal BM today without blood. No CP/palpitations/SOB OBJECTIVE: Afebrile, Hemodynamically Stable. Comfortable s/p EGD Last Vital Signs Temp Pulse Resp BP Pulse Ox 98.2 F 75 16 124/74 100 12/03/19 11:31 12/03/19 12:01 12/03/19 12:01 12/03/19 12:01 12/03/19 12:01 Heart - S1, S2, RRR Lungs - clear to auscultation Abdomen - Soft, non-tender. Bowel Sounds normal. Extremities - no edema, no calf tenderness Neuro - AAO x 3. Tone/Power normal. Laboratory Results - last 24 hr 11/29/19 11/30/19 12/01/19 13:21 08:15 05:40 WBC RBC Hgb Hct MCV MCH MCHC RDW Plt Count MPV Absolute Neuts (auto) Neutrophils % Lymphocytes % Monocytes % Eosinophils % Basophils % Nucleated RBC % Sodium Potassium Chloride Carbon Dioxide Anion Gap BUN Creatinine Est GFR (CKD-EPI)AfAm Est GFR (CKD-EPI)NonAf Random Glucose Calcium Phosphorus Magnesium Total Bilirubin AST ALT Alkaline Phosphatase Total Protein Albumin Stool O & P Wet Mount Hep A IgM Ab Confirm Negative Hepatitis A Ab Total Positive H Hep Bs Antigen Negative Hep Bs Antibody Non reactive Hep B Core Total Ab Negative Hep B Core IgM Ab Negative Hepatitis Be Antibody Negative Hepatitis Be Antigen Negative O & P Permanent Slide Final report Blood Type A POSITIVE Antibody Screen Negative Crossmatch See Detail 12/02/19 12/03/19 12/03/19 13:40 06:55 06:55 WBC 6.5 5.3 RBC 3.32 L 3.18 L Hgb 7.3 L 7.0 L Hct 23.2 L 22.2 L MCV 69.8 L 69.9 L MCH 21.9 L 22.1 L MCHC 31.4 L 31.7 L RDW 26.1 H 26.6 H Plt Count 353 355 MPV 7.1 L 7.3 L Absolute Neuts (auto) 2.9 Neutrophils % 53.9 Lymphocytes % 31.6 Monocytes % 10.6 H Eosinophils % 3.3 Basophils % 0.6 Nucleated RBC % 0 Sodium 140 Potassium 3.9 Chloride 108 H Carbon Dioxide 27 Anion Gap 6 L BUN 10.0 Creatinine 0.7 Est GFR (CKD-EPI)AfAm 140.71 Est GFR (CKD-EPI)NonAf 121.41 Random Glucose 85 Calcium 7.8 L Phosphorus 2.9 Magnesium 2.3 Total Bilirubin 0.3 AST 21 ALT 34 Alkaline Phosphatase 37 L Total Protein 5.7 L Albumin 3.0 L Stool O & P Wet Mount Hep A IgM Ab Confirm Hepatitis A Ab Total Hep Bs Antigen Hep Bs Antibody Hep B Core Total Ab Hep B Core IgM Ab Hepatitis Be Antibody Hepatitis Be Antigen O & P Permanent Slide Blood Type Antibody Screen Crossmatch Current Medications Generic Name Dose Route Start Last Admin Trade Name Freq PRN Reason Stop Dose Admin Acetaminophen 1,000 mg 12/01/19 11:59 12/02/19 00:26 Ofirmev Injection - IVPB 1,000 mg Q6H PRN Administration PAIN LEVEL 6-10 Sodium Chloride 1,000 mls @ 100 mls/hr 12/02/19 22:35 12/03/19 02:42 Normal Saline - IV 100 mls/hr ASDIR ARCHIE Administration Pantoprazole Sodium 40 mg 12/03/19 10:00 12/03/19 09:10 Protonix - PO Not Given DAILY ARCHIE ASSESSMENT AND PLAN: 34 year old male with history of hemorrhoids presents with 6 days of bloody diarrhea. 1. Gastrointestinal hemorrhage, no clear colitis. s/p Colonoscopy 12/01, no acute findings, awaiting pathology report s/p EGD 12/02 - sliding hiatal hernia, no bleeding source identified. Cdiff negative TTG just positive, will defer interpretation to GI. Diet advancement as per GI 2. Acute Blood Loss Anemia secondary to GI blood loss H/H 7.0/22.2 s/p 4 units PRBCs/Venofer - will transfuse another unit PRBCs. Ferritin 4.8/Iron Sat 4% s/p [place] 12/01 - no acute bleed identified. s/p EGD 12/02 - hiatal hernia, no bleeding source identified Continue PPI Capsule Endoscopy as out-patient as per GI. DVT Px - SCDs.
[2019-12-03] MEDS ORDERED: PCA PUMP NR ONE (19:13)
[2019-12-03 23:14] LABS: BASO % 0.5 % (0-2.0); EOS % 2.7 % (0-4.5); HEMATOCRIT 24.7 % (35.4-49); HEMOGLOBIN 7.9 GM/dL (11.7-16.9); MCH 23.1 pg (25.7-33.7); MCHC 32.1 g/dl (32.0-35.9); MEAN CELL VOLUME 72.1 fl (80-96); MEAN PLT VOLUME 7.2 fl (7.5-11.1); MONO % 9.8 % (3.8-10.2); PLATELET COUNT 372 K/MM3 (134-434); RBC 3.42 M/mm3 (4.00-5.60); RDW 28.3 % (11.9-15.9); WHITE BLOOD COUNT 5.2 K/mm3 (4.0-10.0)
[2019-12-04 08:14] LABS: ALBUMIN 3.3 g/dl (3.4-5.0); BILIRUBIN,TOTAL 0.4 mg/dL (0.2-1); CALCIUM 8.4 mg/dL (8.5-10.1); CREATININE 0.8 mg/dL (0.55-1.3); MAGNESIUM 2.3 mg/dL (1.8-2.4); PHOSPHOROUS 3.5 mg/dL (2.5-4.9); TOT PROT 6.3 g/dl (6.4-8.2)
[2019-12-04 09:04] LABS: BASO % 0.5 % (0-2.0); EOS % 2.1 % (0-4.5); HEMATOCRIT 25.8 % (35.4-49); HEMOGLOBIN 8.4 GM/dL (11.7-16.9); LYMPH % 33.5 % (8-40); MCH 23.2 pg (25.7-33.7); MCHC 32.4 g/dl (32.0-35.9); MEAN CELL VOLUME 71.5 fl (80-96); MEAN PLT VOLUME 7.6 fl (7.5-11.1); MONO % 10.9 % (3.8-10.2); PLATELET COUNT 387 K/MM3 (134-434); RBC 3.61 M/mm3 (4.00-5.60); RDW 27.7 % (11.9-15.9); WHITE BLOOD COUNT 5.4 K/mm3 (4.0-10.0)
[2019-12-04] MEDS: PANTOPRAZOLE 40 MG TABLET PO SCH (09:05)
--- NOTE | 2019-12-04 12:20 | PATH ---
Surgical Pathology Report Patient Name: THUAN KAMARA [facility]. Rec. #: [id number] /Age/Gender: 1985 (Age: 34) / M Account: [id number] Location: [facility]/ADOL Taken: 12/02/2019 Received: 12/02/2019 Reported: 12/04/2019 Physicians: Cheyenne Garnica M.D. Specimen(s) Received A: SIGMOID B: RECTUM Clinical History Rectal bleeding and anemia Postoperative diagnosis: Hemorrhoids and diverticulosis Final Diagnosis A. SIGMOID, BIOPSY: COLONIC MUCOSA SHOWING BENIGN/REACTIVE LYMPHOID AGGREGATE. NO EVIDENCE OF COLITIS. B. RECTUM, BIOPSY: FOCAL ACTIVE PROCTITIS. (SEE NOTE) Note: This is a non-specific finding and may be seen in association with acute self-limited colitis/proctitis, or it may represent an early manifestation of inflammatory bowel disease. Clinical correlation and follow-up is suggested. Electronically Signed Kaila aWrd M.D. Gross Description A. Received in formalin, labeled "sigmoid biopsy" are 2 peter, irregular portions of soft tissue measuring 0.2 and 0.3 cm. in greatest dimension. The specimens are submitted in toto in one cassette. B. Received in formalin, labeled "rectal biopsy" are 4 peter, irregular portions of soft tissue ranging from 0.1-0.2 cm. in greatest dimension. The specimens are submitted in toto in one cassette. DL/12/02/2019 saudi/12/02/2019
[2019-12-04 14:08] VITALS: BP 124/83; PULSE 91; TEMP 98.3
--- NOTE | 2019-12-04 14:21 | PN ---
Teaching Attending Note Name of Resident: Chirag Sylvester ATTENDING PHYSICIAN STATEMENT I saw and evaluated the patient. I reviewed the resident's note and discussed the case with the resident. I agree with the resident's findings and plan as documented. SUBJECTIVE: Feeling much better. No further bloody BMs. No CP/palpitations/SOB. OBJECTIVE: Afebrile, Hemodynamically Stable. Comfortable s/p EGD/[place] Last Vital Signs Temp Pulse Resp BP Pulse Ox 98.3 F 91 H 14 124/83 100 12/04/19 14:07 12/04/19 14:07 12/04/19 14:07 12/04/19 14:07 12/04/19 07:51 Heart - S1, S2, RRR Lungs - clear to auscultation Abdomen - Soft, non-tender. Bowel Sounds normal. Extremities - no edema, no calf tenderness Neuro - AAO x 3. Tone/Power normal. Laboratory Results - last 24 hr 11/29/19 11/30/19 12/01/19 13:21 07:30 05:40 WBC RBC Hgb Hct MCV MCH MCHC RDW Plt Count MPV Absolute Neuts (auto) Neutrophils % Lymphocytes % Monocytes % Eosinophils % Basophils % Nucleated RBC % Sodium Potassium Chloride Carbon Dioxide Anion Gap BUN Creatinine Est GFR (CKD-EPI)AfAm Est GFR (CKD-EPI)NonAf Random Glucose Calcium Phosphorus Magnesium Total Bilirubin AST ALT Alkaline Phosphatase Total Protein Albumin S.cerevisiae IgG Ab <20.0 S. cerevisiae IgG/IgA 25.0 H TB Test (QFT) Nil 0.03 TB Test (QFT) Mitogen >10.00 TB Test (QFT) Ag 1 0.03 TB Test (QFT) Ag 2 0.03 TB Test (QFT) Negative TB Positive Criteria Blood Type A POSITIVE Antibody Screen Negative Crossmatch See Detail 12/03/19 12/03/19 12/04/19 15:01 23:03 07:05 WBC 5.2 5.4 RBC 3.42 L 3.61 L Hgb 7.9 L 8.4 L Hct 24.7 L 25.8 L MCV 72.1 L 71.5 L MCH 23.1 L 23.2 L MCHC 32.1 32.4 RDW 28.3 H 27.7 H Plt Count 372 387 MPV 7.2 L 7.6 Absolute Neuts (auto) 2.7 2.8 Neutrophils % 52.0 53.0 Lymphocytes % 35.0 33.5 Monocytes % 9.8 10.9 H Eosinophils % 2.7 2.1 Basophils % 0.5 0.5 Nucleated RBC % 0 0 Sodium Potassium Chloride Carbon Dioxide Anion Gap BUN Creatinine Est GFR (CKD-EPI)AfAm Est GFR (CKD-EPI)NonAf Random Glucose Calcium Phosphorus Magnesium Total Bilirubin AST ALT Alkaline Phosphatase Total Protein Albumin S.cerevisiae IgG Ab S. cerevisiae IgG/IgA TB Test (QFT) Nil TB Test (QFT) Mitogen TB Test (QFT) Ag 1 TB Test (QFT) Ag 2 TB Test (QFT) TB Positive Criteria Blood Type A POSITIVE Antibody Screen Negative Crossmatch See Detail 12/04/19 07:05 WBC RBC Hgb Hct MCV MCH MCHC RDW Plt Count MPV Absolute Neuts (auto) Neutrophils % Lymphocytes % Monocytes % Eosinophils % Basophils % Nucleated RBC % Sodium 140 Potassium 4.0 Chloride 107 Carbon Dioxide 27 Anion Gap 6 L BUN 8.0 Creatinine 0.8 Est GFR (CKD-EPI)AfAm 133.20 Est GFR (CKD-EPI)NonAf 114.93 Random Glucose 82 Calcium 8.4 L Phosphorus 3.5 Magnesium 2.3 Total Bilirubin 0.4 AST 53 H ALT 60 Alkaline Phosphatase 40 L Total Protein 6.3 L Albumin 3.3 L S.cerevisiae IgG Ab S. cerevisiae IgG/IgA TB Test (QFT) Nil TB Test (QFT) Mitogen TB Test (QFT) Ag 1 TB Test (QFT) Ag 2 TB Test (QFT) TB Positive Criteria Blood Type Antibody Screen Crossmatch Current Medications Generic Name Dose Route Start Last Admin Trade Name Freq PRN Reason Stop Dose Admin Acetaminophen 1,000 mg 12/01/19 11:59 12/02/19 00:26 Ofirmev Injection - IVPB 1,000 mg Q6H PRN Administration PAIN LEVEL 6-10 Pantoprazole Sodium 40 mg 12/03/19 10:00 12/04/19 09:05 Protonix - PO 40 mg DAILY ARCHIE Administration ASSESSMENT AND PLAN: 34 year old male with history of hemorrhoids, Acne on acute course of Amoxicillin, presents with 6 days of bloody diarrhea. 1. Gastrointestinal Hemorrhage, no clear colitis. s/p Colonoscopy 12/01, no acute findings, awaiting pathology report s/p EGD 12/02 - sliding hiatal hernia, no bleeding source identified. Cdiff negative TTG just positive, will defer interpretation to GI. Tolerating advanced diet - for GI outpatient follow up. 2. Acute Blood Loss Anemia secondary to GI blood loss H/H 8.4/25 s/p 5 units PRBCs and IV Venofer Ferritin 4.8/Iron Sat 4% s/p [place] 12/01 - no acute bleed identified. s/p EGD 12/02 - hiatal hernia, no bleeding source identified Continue PPI and Gaviscon PRN Capsule Endoscopy as out-patient as per GI. Iron supplementation on discharge. Medically and Hemodynamically Stable for discharge.
--- NOTE | 2019-12-04 14:30 | DS ---
Physical Exam: SUBJECTIVE: Patient seen and examined at bedside. OBJECTIVE: Vital Signs Period Temp Pulse Resp BP Sys/[place] Pulse Ox Last 24 Hr 97.8 F-98.6 F 78-91 14-20 104-129/64-83 98-100 PHYSICAL EXAM GENERAL: AAOx3, in no acute distress. laying in bed HEENT: NCAT, PERRLA, EOMI, sclera anicteric, conjunctiva clear, oropharynx clear w/o exudates. MMM. NECK: Normal ROM, supple, no lymphadenopathy, JVD, or masses LUNGS: CTABL no wheezes/ rhonchi/ rales. No distress, speaks in full sentences. No increased work of breathing. HEART: RRR, normal S1 S2, no M/R/G, peripheral pulses 2+ and equal b/l ABDOMEN: Soft, NTND, + BS. No guarding or rebound. No hepatomegaly or splenomegaly. MSK: ROM WNL. Diffuse tenderness in low back-improved from yesterday EXTREMITIES: Normal inspection. No peripheral edema. No clubbing or cyanosis. NEUROLOGICAL: CN II-XII intact. Normal speech, normal gait, no focal sensorimotor deficits. SKIN: Warm, Dry, normal turgor, no rashes or lesions noted Laboratory Results - last 24 hr CBC, BMP 12/04/19 07:05 12/04/19 07:05 11/29/19 11/30/19 12/01/19 13:21 07:30 05:40 WBC RBC Hgb Hct MCV MCH MCHC RDW Plt Count MPV Absolute Neuts (auto) Neutrophils % Lymphocytes % Monocytes % Eosinophils % Basophils % Nucleated RBC % Sodium Potassium Chloride Carbon Dioxide Anion Gap BUN Creatinine Est GFR (CKD-EPI)AfAm Est GFR (CKD-EPI)NonAf Random Glucose Calcium Phosphorus Magnesium Total Bilirubin AST ALT Alkaline Phosphatase Total Protein Albumin S.cerevisiae IgG Ab <20.0 S. cerevisiae IgG/IgA 25.0 H TB Test (QFT) Nil 0.03 TB Test (QFT) Mitogen >10.00 TB Test (QFT) Ag 1 0.03 TB Test (QFT) Ag 2 0.03 TB Test (QFT) Negative TB Positive Criteria Blood Type A POSITIVE Antibody Screen Negative Crossmatch See Detail 12/03/19 12/03/19 12/04/19 15:01 23:03 07:05 WBC 5.2 5.4 RBC 3.42 L 3.61 L Hgb 7.9 L 8.4 L Hct 24.7 L 25.8 L MCV 72.1 L 71.5 L MCH 23.1 L 23.2 L MCHC 32.1 32.4 RDW 28.3 H 27.7 H Plt Count 372 387 MPV 7.2 L 7.6 Absolute Neuts (auto) 2.7 2.8 Neutrophils % 52.0 53.0 Lymphocytes % 35.0 33.5 Monocytes % 9.8 10.9 H Eosinophils % 2.7 2.1 Basophils % 0.5 0.5 Nucleated RBC % 0 0 Sodium Potassium Chloride Carbon Dioxide Anion Gap BUN Creatinine Est GFR (CKD-EPI)AfAm Est GFR (CKD-EPI)NonAf Random Glucose Calcium Phosphorus Magnesium Total Bilirubin AST ALT Alkaline Phosphatase Total Protein Albumin S.cerevisiae IgG Ab S. cerevisiae IgG/IgA TB Test (QFT) Nil TB Test (QFT) Mitogen TB Test (QFT) Ag 1 TB Test (QFT) Ag 2 TB Test (QFT) TB Positive Criteria Blood Type A POSITIVE Antibody Screen Negative Crossmatch See Detail 12/04/19 07:05 WBC RBC Hgb Hct MCV MCH MCHC RDW Plt Count MPV Absolute Neuts (auto) Neutrophils % Lymphocytes % Monocytes % Eosinophils % Basophils % Nucleated RBC % Sodium 140 Potassium 4.0 Chloride 107 Carbon Dioxide 27 Anion Gap 6 L BUN 8.0 Creatinine 0.8 Est GFR (CKD-EPI)AfAm 133.20 Est GFR (CKD-EPI)NonAf 114.93 Random Glucose 82 Calcium 8.4 L Phosphorus 3.5 Magnesium 2.3 Total Bilirubin 0.4 AST 53 H ALT 60 Alkaline Phosphatase 40 L Total Protein 6.3 L Albumin 3.3 L S.cerevisiae IgG Ab S. cerevisiae IgG/IgA TB Test (QFT) Nil TB Test (QFT) Mitogen TB Test (QFT) Ag 1 TB Test (QFT) Ag 2 TB Test (QFT) TB Positive Criteria Blood Type Antibody Screen Crossmatch Discharge Medications Medication Instructions Recorded Docusate Sodium [Colace] 100 mg PO BID #30 capsule 12/04/19 Ferrous Sulfate [Feosol] 325 mg PO DAILY #30 tablet 12/04/19 Mag Carb/Aluminum Hydrox/Algin 30 ml PO Q4H PRN 30 Days #2 12/04/19 [Gaviscon Extra Strength Liquid] oral.susp Pantoprazole Sodium [Protonix -] 40 mg PO DAILY #30 tablet.ec 12/04/19 HOSPITAL COURSE: 34 year old male with history of hemorrhoids, Acne on acute course of Amoxicillin, presented with 6 days of bloody diarrhea. Patient underwent a colonoscopy and EGD with no acute findings or bleeding sources identified. Patient was tested for Cdiff and was found to be negative. Patient was very anemic during his stay with 5 units PRBC's transfused during this visit. Patient was discharged with outpt followup with Dr. Varela for video capsule endoscopy, Gaviscon, PPI, and iron supplements. Date of Admission:11/29/19 11/29/19-CT A/P w Contrast-Lack of oral contrast is limiting this exam. There is no evidence of small bowel obstruction. Questionable couple of diverticula in splenic flexure of the colon without evidence of acute diverticulitis. Nondistention of the descending and sigmoid colon. Cannot rule out wall thickening or colitis although no surrounding stranding/inflammatory changes are identified. 12/01/19-CXR- Impression: No acute chest pathology. 12/02/19-EKG-NSR Date of Discharge: 12/04/19 Minutes to complete discharge: 36 Discharge Summary Problems reviewed: Yes Reason For Visit: GASTROINSTINAL HEMORRHAGE ANEMIA Current Active Problems Acne vulgaris (Acute) Anemia (Acute) Back pain (Acute) Bloody diarrhea (Acute) Chest pain (Acute) GI bleed (Acute) Hemorrhoids (Acute) Hiatal hernia (Acute) Condition: Stable - Instructions Diet, Activity, Other Instructions: Your visit: You were admitted to the hospital for blood in your stools. You were found to to have a low hemoglobin. You were treated with transfusion with improvement of your symptoms. We also did a colonoscopy and an EGD to look for the source of your bleeding but we were not able to find one. You will need a video capsule endoscopy with Dr. Varela to find out the source of your bleeding Medications changes: NEW MEDS: -Since your hemoglobin is low we want to start you on iron supplements. Please take 1 pill of FERROUS SULFATE ONCE A DAY. -We started you on a stool softener. Please take 1 PILL OF COLACE 100 MG TWICE A DAY. -We started you on a acid reflux medicine to prevent further bleeding. Please take 30 ML of GAVISCON EVERY 4 HOURS NEEDED for stomach pain. -We started you on a acid reflux medicine to prevent further bleeding. Please take 1 PILL of PROTONIX ONCE A DAY. -Continue to take all other home medications as prescribed. Follow up: - Please follow-up with Dr. Varela in 1 week to schedule for a video capsule endoscopy. -Please follow up with your Supervisor [employer], Dr. Soriano in 1 week to - Visit with your Primary Care Provider, Dr. Gee in 2 weeks for a repeat blood test to follow up on your hemoglobin levels. Additional Instructions: -You are being discharged to your home. -Please return to the Emergency Department if you experience worsening pain, fevers, chills, shortness of breath, or chest pain, or if you experience any worsening, new or concerning symptoms. Referrals: Lucio Jim MD [Staff Physician] - 1 Week (eval for GI bleed) Marlen Salazar DO [Primary Care Provider] - 2 Weeks (eval for GI bleeding) Nnamdi Varela MD [Staff Physician] - 1 Week (eval for capsule endoscopy for major GI bleed) Disposition: HOME - Home Medications Comprehensive Discharge Medication List: Ambulatory Orders Docusate Sodium [Colace] 100 mg PO BID #30 capsule 12/04/19 Ferrous Sulfate [Feosol] 325 mg PO DAILY #30 tablet 12/04/19 Mag Carb/Aluminum Hydrox/Algin [Gaviscon Extra Strength Liquid] 30 ml PO Q4H PRN 30 Days #2 oral.susp 12/04/19 Pantoprazole Sodium [Protonix -] 40 mg PO DAILY #30 tablet.ec 12/04/19 This patient is new to me today: No Emergency Visit: No Critical Care patient: No - Discharge Referral Referred to [facility] No ATTENDING PHYSICIAN STATEMENT I saw and evaluated the patient. I reviewed the resident's note and discussed the case with the resident. I agree with the resident's findings and plan as documented. SUBJECTIVE: OBJECTIVE: ASSESSMENT AND PLAN:
[2019-12-04 16:08] LABS: ATYPICAL pANCA <1:20 titer (Neg:<1:20); C-ANCA <1:20 titer (Neg:<1:20)
--- NOTE | 2019-12-04 16:28 | PATH ---
Surgical Pathology Report Patient Name: THUAN KAMARA [facility]. Rec. #: [id number] /Age/Gender: 1985 (Age: 34) / M Account: [id number] Location: [facility] PEDS/ADOL Taken: 12/03/2019 Received: 12/03/2019 Reported: 12/04/2019 Physicians: Janell Enamorado MD Specimen(s) Received A: DUODENUM SECOND PORTION AND BULB B: ANTRUM Clinical History GI bleed Postoperative diagnosis: Hiatal hernia Final Diagnosis A.. DUODENUM, SECOND PORTION, BIOPSY: DUODENAL MUCOSA WITH MILD CHRONIC DUODENITIS AND PRESERVED VILLOUS ARCHITECTURE. B. STOMACH, ANTRUM, BIOPSY: GASTRIC ANTRAL MUCOSA WITH MODERATE CHRONIC GASTRITIS. IMMUNOHISTOCHEMICAL STAIN FOR H. PYLORI IS NEGATIVE. Positive and negative controls (internal if applicable) show appropriate results. Electronically Signed Adelia Quinteros M.D. Gross Description A. Received in formalin, labeled "biopsy duodenum second portion"" are 3 peter, irregular portions of soft tissue ranging from 0.2-0.4 cm. in greatest dimension. The specimens are submitted in toto in one cassette. B. Received in formalin, labeled "biopsy antrum" is a peter, irregular portion of soft tissue measuring 0.3 cm. in greatest dimension. The specimen is submitted in toto in one cassette. /12/03/2019 saudi12/03/2019
--- NOTE | 2019-12-05 14:25 | PN ---
Progress Note, Physician Chief Complaint: Pt A&Ox3; no chest pain or dyspnea; minimal abdominal discomfort. History of Present Illness: Mr. Glass is a 34 yr old man (b [facility]), with known hemorrhoids, who presents today after 6 days of acute diarrhea. Patient reports he went for a COVID PCR test on Sunday and upon waking on Sunday he started having LLQ pain and developed diarrhea. Last meal before symptoms was a home-cooked chicken dish. Unfortunately patient had micah blood in the toilet at this time and had multiple episodes of bloody diarrhea. Patient reports he has had episodes of bloody diarrhea years before, but he was never symptomatic from them. Patient notes that today he became dizzy and lightheaded and sought medical evaluation. Pt endorses minimal abdominal tenderness mostly in LLQ without any radiation and characterized as a dull ache. In the ED patient was noted to have Hgb of 7.0 with severe iron deficiency. Patient has never received transfusion before. He has never seen a obiee consultant and denies any family history of cancers. - Objective Vital Signs: Vital Signs Temperature 98.3 F 12/04/19 14:07 Pulse Rate 91 H 12/04/19 14:07 Respiratory Rate 14 12/04/19 14:07 Blood Pressure 124/83 12/04/19 14:07 O2 Sat by Pulse Oximetry (%) 100 12/04/19 07:51 Constitutional: Yes: Calm, Obese Eyes: Yes: WNL HENT: Yes: WNL, Pharyngeal Erythema Cardiovascular: Yes: Regular Rate and Rhythm Respiratory: Yes: WNL Gastrointestinal: Yes: Soft, Tenderness (mild) ...Rectal Exam: Yes: Deferred Genitourinary: No: Anuria Musculoskeletal: Yes: WNL Extremities: Yes: WNL Edema: No Peripheral Pulses WNL: Yes Integumentary: Yes: WNL Neurological: Yes: WNL ...Motor Strength: WNL Psychiatric: Yes: WNL Labs: CBC, BMP 12/04/19 07:05 12/04/19 07:05 INR, PTT INR 1.25 (0.83-1.09) H 12/01/19 05:40 Abnormal Lab Results 11/29/19 13:21 Crossmatch See Detail - ....Imaging Chest X-ray: Image Reviewed EKG: Image Reviewed Assessment/Plan Mr Glass is a 34yo M with known hemorrhoids who presents today after 6 days of acute diarrhea. and severe anemia. Developed mild chest pain post PRBC transfusion. EKG normal CE negative. Good exercise tolerance easily > 4.6 METS before admission (pt exercises several times a week for 1-2 hour sessions, including vigorous cardiac workouts, with no chest pain or dyspnea). No personal or family hx of CAD/AZ/CVA. No hx cigarettes. EKG: NSR; normal study. Plan: S/p EGD and colonoscopy; f/u with GI. vital signs stable. F/u TSH WNL; total cholesterol 102 mg/dL. Hydration Pain management. F/u Hb.
== END 2019-12-04 16:00 | disposition home or self-care (01) | DRG 253 ==
LOC: JER 10:52 → INTOOBSV 17:01 → OBSVTOIN 17:01 → JERBED 17:01 → J7W 19:59 → J4S 12-01 16:46
PROVIDERS: ADMIT Internal Medicine
PROC: 30233N1 Transfusion of Nonautologous Red Blood Cells into Peripheral Vein, Percutaneous Approach (ICD-10-PCS; 2019-11-29)
PROC: 0DBN8ZX Excision of Sigmoid Colon, Via Natural or Artificial Opening Endoscopic, Diagnostic (ICD-10-PCS; principal; 2019-12-02 12:00)
PROC: 0DB98ZX Excision of Duodenum, Via Natural or Artificial Opening Endoscopic, Diagnostic (ICD-10-PCS; 2019-12-03)
PROC: 0DB78ZX Excision of Stomach, Pylorus, Via Natural or Artificial Opening Endoscopic, Diagnostic (ICD-10-PCS; 2019-12-03)
DX: K92.2 Gastrointestinal hemorrhage, unspecified (principal); L70.0 Acne vulgaris; R19.7 Diarrhea, unspecified; R07.89 Other chest pain; M54.9 Dorsalgia, unspecified; D62 Acute posthemorrhagic anemia; K44.9 Diaphragmatic hernia without obstruction or gangrene; K57.90 Diverticulosis of intestine, part unspecified, without perforation or abscess without bleeding; K64.9 Unspecified hemorrhoids
CPT/HCPCS: 36415; 36430; 71045-TC-FY; 74177-TC; 80048; 80053; 80061; 81003; 82247; 82248; 82550; 82728; 82962; 83516; 83520; 83540; 83550; 83690; 83721; 83735; 83993; 84100; 84443; 84484; 85025; 85027; 85045; 85610; 86140; 86256; 86480; 86671; 86704; 86706; 86707; 86708; 86709; 86803; 86850; 86900; 86901; 86922; 87086; 87177; 87205; 87209; 87324; 87340; 87449; 88305-TC; 93005; 93010; 97116-GP; 97161-GP; 99285-25; J0131; J1756; P9038; P9058; Q9967; U0003

== ENCOUNTER 2020-05-15 12:52 | Emergency (ER) | payer OTHER ==
[2020-05-15 13:02] VITALS: BP 108/68; TEMP 97.3; BMI 33.3
[2020-05-15 13:05] VITALS: PULSE 98
[2020-05-15] MEDS ORDERED: KETOROLAC TROMETHAMINE 30 MG/1 ML VIAL IM ONE (13:10)
[2020-05-15] MEDS ORDERED: KETOROLAC TROMETHAMINE 30 MG/1 ML VIAL ONE (13:21)
== END 2020-05-15 13:34 | disposition home or self-care (01) ==
LOC: JER 12:52 → JERFT 12:52
PROC: 3E0233Z Introduction of Anti-inflammatory into Muscle, Percutaneous Approach (ICD-10-PCS; principal; 2020-05-15)
DX: M54.12 Radiculopathy, cervical region (principal)
CPT/HCPCS: 99284-25